=== PATIENT | male | born 1955 | race Caucasian/White ===

== ENCOUNTER 2018-03-28 11:59 | Inpatient (IN) | payer OTHER ==
[~2018-03-28] VITALS: Ht 180.3 cm; Wt 50.8 kg
[2018-03-28 12:36] LABS: ABSOLUTE BASOPHIL COUNT 0 /CUMM (0.0-0.2); ABSOLUTE EOSINOPHIL COUNT 0 /CUMM (0.0-0.7); ABSOLUTE GRANULOCYTE CT 7.3 /CUMM (1.4-6.5); ABSOLUTE LYMPH COUNT 0.6 /CUMM (1.2-3.4); ABSOLUTE MONOCYTE COUNT 1.2 /CUMM (0.10-0.60); BASOPHIL % 0.1 % (0.0-2.0); EOSINOPHIL % 0 % (0-5); GRANULOCYTE % 79.9 % (42.2-75.2); MEAN CORPUSCULAR HGB 28.9 PG (27.0-31.0); MEAN CORPUSCULAR HGB CONC 31.9 G/DL (33.0-37.0); MEAN CORPUSCULAR VOLUME 90.5 FL (80.0-94.0); MEAN PLATELET VOLUME 7.9 FL (7.4-10.4); PLATELET COUNT 184 /CUMM (130-400); RBC DISTRIBUTION WIDTH 15.1 % (11.5-14.5); RED BLOOD CELL CT 4.64 /CUMM (4.70-6.10); WHITE BLOOD CELL COUNT 9.1 /CUMM (4.8-10.8)
--- NOTE | 2018-03-28 13:18 | ED DYSPNEA/ASTHMA COMPLAINT ---
History of Present Illness General Chief Complaint: Dyspnea (COPD, CHF, Other) Stated Complaint: SOB Source: patient, , Thais Exam Limitations: no limitations Allergies Coded Allergies: No Known Allergies (03/28/18) Triage Note: 62M BROUGHT IMMEDIATELY TO ROOM 7 DUE TO SOB, O2 SAT 72% ON BASELINE 2LNC. LUNG SOUNDS DIMINISHED. REPORTS CLEAR SPUTUM PROD COUGH NORMAL AT BASELINE. MUCOUS MEMBRANES DRY. APPEARS CACHECTIC, PALE, ALERT AND ORIENTED. REPORTS RECENT POOR PO INTAKE. PREVIOUS SMOKER 2PPD 45 YEAR HX. O2 TITRATED UP WITH SLOW IMPROVEMENT, CURRENTLY 92% ON 5LNC. REPORTS NASAL POLYP AND HAS APPT WITH ENT NEXT WEEK. HX AAA, HAS PULSATILE ABDOMINAL MASS WITH BOUNDING AORTIC PULSE WITHOUT BRUIT. REPORTS MILD GNAWING PAIN. DENIES N/V/D Triage Nurses Notes Reviewed? yes Onset: yesterday Duration: continues in ED Severity: severe Activities at Onset: activity, rest Prior Episodes/Possible Cause: chronic episodes, illness exposure, smoke exposure Associated Symptoms: loss of appetite, weakness HPI: 62-year-old male presents to the emergency department with shortness of breath. He has a history of COPD to which he uses inhalers daily. He reports that as of yesterday he had eaten a grilled cheese sandwich and not too long after that he began having some shortness of breath. He also reports that he was having worsening shortness of breath last night to which his states he was taking shallow quick breaths. He has never been to the emergency department before for COPD exacerbations. His vice chair is Dr. Lynn his master mechanic is Dr. Faye. He denies any chest pain. His also reports that he was rather weak last night into this morning. Otherwise his speech is normal per his . Patient does state he is on oxygen 2 L at baseline at home. It is uncertain whether he continues to smoke - the patient reports he does not smoke however his reports that every now and then she believes he does. Of note, he also does report that he was having some difficulty breathing through his nose in the past couple of weeks. He was seen by his primary care and was told that he has nasal polyps. He has a follow-up with ENT office this upcoming Friday. He has a history of abdominal aortic aneurysm and is seeing Dr. Faye as a master mechanic. He was told the last time it was checked that it was about 5 cm and would be continued to be monitored. (Roxi Mercer) Vital Signs & Intake/Output Vital Signs & Intake/Output Vital Signs Date Time Temp Pulse Resp B/P B/P Pulse O2 O2 Flow FiO2 Mean Ox Delivery Rate 03/28 1841 95 Nasal 2.0L Cannula 03/28 1821 98.3 106 18 90/60 95 Nasal 2.0L Cannula 03/28 1703 95 24 114/69 93 Nasal 2.0L Cannula 03/28 1645 92 Nasal 2.0L Cannula 03/28 1630 88 98 / 1557 82 24 83/62 100 BIPAP 03/28 1401 116 105/74 05/ 1330 96 BIPAP 35% 03/28 1310 116 22 105/74 96 BIPAP 35% 03/28 1255 97 122 05/ 1215 70 Nasal 2.0L Cannula 03/28 1213 131 24 91 Nasal 5.0L Cannula 03/28 1200 98.4 133 28 116/69 72 Room Air Reconcile Medications Albuterol Sulfate (Proair Hfa) 90 MCG HFA.AER.AD 2 PUF INH Q4-6 PRN PRN COPD (Reported) Atorvastatin Calcium (Lipitor) 10 MG TABLET 1 TAB PO DAILY HLP (Reported) Fluticasone/Vilanterol (Breo Ellipta 200-25 Mcg INH) 200 MCG-25 MCG/DOSE BLST.W.DEV 1 INH INH DAILY COPD (Reported) Paroxetine HCl 40 MG TABLET 1 TAB PO DAILY DEPRESSION (Reported) Tiotropium [place] (Spiriva) 18 MCG CAP.W.DEV 1 CAP INH DAILY COPD (Reported) Trazodone HCl 50 MG TABLET 1 TAB PO QPM INSOMINA (Reported) (Siddharth Pandey MD) Past History Travel History Traveled to [place] past 21 day No Medical History Any Pertinent Medical History? see below for history Neurological: NONE EENT: NONE Cardiovascular: aortic aneurysm (abdominal) Respiratory: COPD Gastrointestinal: NONE Hepatic: NONE Renal: NONE Musculoskeletal: NONE Psychiatric: history of alcohol abuse, has been sober for many years (>10) Endocrine: NONE Psychosocial History What is your primary language Romansh Tobacco Use: Quit >30 days ago Daily Tobacco Use Amount/Type: => 5 Cigarettes daily Family History Hx Contributory? No (Roxi Mercer) Surgical History Surgical History: non-contributory (Dannie BISHOP,Siddharth) Review of Systems Review of Systems Constitutional: Reports: see HPI. EENTM: Reports: no symptoms. Respiratory: Reports: see HPI. Cardiovascular: Reports: no symptoms. GI: Reports: no symptoms. Genitourinary: Reports: no symptoms. Musculoskeletal: Reports: no symptoms. Skin: Reports: no symptoms. Neurological/Psychological: Reports: no symptoms. Hematologic/Endocrine: Reports: no symptoms. Immunologic/Allergic: Reports: no symptoms. All Other Systems: Reviewed and Negative (Roxi Mercer) Physical Exam Physical Exam General Appearance: well developed/nourished, no apparent distress, alert, awake , comfortable, cachetic Head: atraumatic, normal appearance Eyes: Bilateral: normal appearance, PERRL, EOMI. Ears, Nose, Throat: pharynx with blackened appearance, per patient was likely from ensure drink, dry mucous membranes Neck: normal inspection, full range of motion Respiratory: chest non-tender, decreased breath sounds, crackles (lower lung pinon) Cardiovascular: tachycardia Gastrointestinal: soft, non-tender, pulsatile mass (abd aortic aneurysm), abnormal bowel sounds (hyperactive) Extremities: normal inspection, normal range of motion, no edema Neurologic/Psych: no motor/sensory deficits, awake, alert, oriented x 3, normal mood/affect Skin: intact, normal color Core Measures ACS in differential dx? Yes CVA/TIA Diagnosis No Sepsis Present: No Sepsis Focused Exam Completed? No (Roxi Mercer) Progress Differential Diagnosis: CHF, COPD, pneumonia, acute copd exacerbation Diagnostic Imaging: Viewed by Me: Radiology Read. Discussed w/RAD: Radiology Read. Radiology Impression: PATIENT: EDD CAMPOS PRESENT AGE: 62 PATIENT ACCOUNT NO: [id number] : 55 LOCATION: [facility] ORDERING PHYSICIAN: Siddharth Pandey MD SERVICE DATE: 03/28/18 EXAM TYPE: RAD - XRY- PORTABLE CHEST XRAY EXAMINATION: XR PORTABLE CHEST CLINICAL INFORMATION: COPD, shortness of breath COMPARISON: CT chest 12/04/2017, chest radiographs 2015 TECHNIQUE: Portable upright AP view of the chest was obtained. FINDINGS: There is hyperinflation/COPD. Some minor scarring is present periphery right upper zone similar to prior study. There is no interval airspace consolidation or definite effusion. No pneumothorax. The heart is normal in size. Hilar and mediastinal contours and visualized bony structures are stable. IMPRESSION: Hyperinflation/COPD. No acute intrathoracic disease. DICTATED BY: Kelton Arreaga MD DATE/TIME DICTATED:03/28/181323 AREA DIRECTOR:YONATHAN DATE/TIME TRANSCRIBED:03/28/181323 CONFIDENTIAL, DO NOT COPY WITHOUT APPROPRIATE AUTHORIZATION. <Electronically signed in Other Vendor System> SIGNED BY: Kelton Arreaga MD 03/28/18 1331 Initial ED EKG: tachycardia with rate-related ischemia Comments: 03/28/18 1:35pm Patient's carbon monoxide level was elevated, and he was placed on BiPAP with DuoNeb. His troponin level was elevated at 0.34. His BNP is also elevated at 2810. Patient is to be admitted and will likely be placed in the ICU. 03/28/18 1:55pm Patient was given Lopressor IV 5 mg for rate control. He was also started on baby aspirin. He was also started on Solu-Medrol. Hospitalist was consulted by . 03/28/18 2:45pm Patient doing well on BiPAP machine. When asked how his breathing is he gives a thumbs up. 03/28/18 4:30pm Patient's blood pressure was dropping, was given bolus IV. Heart rate normalizing around the 80-90s. Patient was resting, but easily arousable. Patient was admitted to the floor. Discussed case and plan with Dr. Pandey who discussed with admitting attending. ([facility] [place] Plan of Care: Orders Procedure Date/time Status Nothing by Mouth 03/29 B Active ARTERIAL BLOOD GAS (GEN) 03/29 0500 Active ICU LAB BUNDLE 03/29 0500 Active CBC WITHOUT DIFFERENTIAL 03/29 0500 Active TROPONIN LEVEL 03/29 0000 Active EKG 03/29 0000 Active Regular Diet 03/28 D Complete RT: Evaluation 03/28 1828 Active Wound Care/Dressing 03/28 1821 Active Weight 03/28 182 Active VTE Mechanical Prophylaxis 03/28 182 Active Vital Signs 03/28 1821 Active Turn and Reposition 03/28 1821 Active Drains/Tubes 03/28 1821 Complete Teach/Educate 03/28 1821 Active Skin Integrity Protocol 03/28 1821 Active Skin/Pressure Ulcer Assess (Sk 05/05 1821 Active Precautions 03/28 1821 Active Pain Treatment and Response 03/28 182 Active Nutritional Intake, Monitor 03/28 182 Active Isolation 03/28 1821 Active CIWA 03/28 1821 Active Patient Care Conference 03/28 1821 Active Activity/Ambulation 03/28 1821 Active TROPONIN LEVEL 03/28 1800 Active EKG 03/28 1800 Active VRE ACTIVE SURVIELLANCE 03/28 1743 Active ACTIVE SURVEILLANCE NARES 03/28 1743 Active ARTERIAL BLOOD GAS (GEN) 03/28 1730 Active Arredondo, Insertion/Removal/Asses 03/28 1708 Active CULTURE,URINE 03/28 1708 Active ECHOCARDIOGRAM 03/28 1632 Active Pathway - chart 03/28 1627 Active TRC EVALUATION (GEN) 03/28 1625 Active Pathway - chart 03/28 1625 Active House Staff 03/28 1625 Active Patient Data 03/28 1625 Active Code Status 03/28 1625 Active Patient Data 03/28 1517 Active Admit to inpatient 03/28 1349 Active AEROSOL (GEN) 03/28 1330 Complete BIPAP 03/28 1255 Complete ARTERIAL BLOOD GAS (GEN) 03/28 1216 Complete TROPONIN LEVEL 03/28 1216 Complete MAGNESIUM 03/28 1216 Complete COMPREHENSIVE METABOLIC PANEL 03/28 1216 Complete CBC WITHOUT DIFFERENTIAL 03/28 1216 Complete B-TYPE NATRIURETIC PEP (BNP) 03/28 1216 Complete EKG 03/28 1207 Active BIPAP 03/28 UNK Complete VTE Mechanical Prophylaxis 03/28 UNK Active Vital Signs 03/28 UNK Active Intake & Output 03/28 UNK Active Current Medications Sig/Alejandrina Start time Last Medication Dose Stop Time Status Admin Aspirin 81 MG DAILY 03/29 09 AC (Aspirin) Enoxaparin Sodium 40 MG DAILY 03/29 09 AC (Lovenox) Tiotropium [place] 1 PUF DAILY 03/29 09 AC (Spiriva) Methylprednisolone 40 MG Q8 03/28 2200 AC (Solumedrol) Budesonide/ 2 PUF BID 03/28 2100 AC Formoterol Fumarate (Symbicort) Trazodone HCl 50 MG QPM PRN 03/28 1900 UNVr (Desyrel) Paroxetine HCl 40 MG DAILY 03/28 1856 UNVr (Paxil) Atorvastatin Calcium 40 MG 1700 03/28 1700 AC 03/28 (Lipitor) 1850 Azithromycin 500 MG DAILY 03/28 1633 AC 03/28 (Zithromax) 1731 Sodium Chloride 250 ML (Normal Saline 0.9%) Laboratory Tests 03/28/18 1810: Troponin I Pending 03/28/18 1740: pH 7.35, pCO2 62 *H, pO2 83, HCO3 34 H, ABG O2 Sat (Measured) 94.0 L, P-50 ( Temp Corrected) N, Carboxyhemoglobin 1.0 L, O2 Concentration % 30%, Temperature 98.4, Respiration Rate 24, O2 Delivery Method BIPAP, Vent Mode ST, Expiratory Pressure 6, Inspiratory Pressure 22, Phlebotomy Draw Site RIGHT RADIAL 03/28/18 1430: pH 7.29 *L, pCO2 94 *H, pO2 80, HCO3 44 H, ABG O2 Sat (Measured) 93.0 L, Carboxyhemoglobin 1.4 L, O2 Concentration % 35, Respiration Rate 18, O2 Delivery Method BIPAP, Vent Mode ST, Expiratory Pressure 4, Inspiratory Pressure 15, Phlebotomy Draw Site RIGHT RADIAL 03/28/18 1235: pH 7.28 *L, pCO2 93 *H, pO2 66 L, HCO3 43 H, ABG O2 Sat (Measured) 88.0 L, Carboxyhemoglobin 2.0, O2 Concentration % 5L, O2 Delivery Method N/C, Phlebotomy Draw Site RIGHT RADIAL 03/28/18 1220: Anion Gap 13, Estimated GFR > 60, BUN/Creatinine Ratio 38.6 H, Glucose 192 H, Calcium 9.3, Magnesium 1.9, Total Bilirubin 0.5, AST 37, ALT 29, Alkaline Phosphatase 64, Troponin I 0.34 *H, Owx-V-Njefmuuyccz Pept 2810 H, Total Protein 7.1, Albumin 4.5, Globulin 2.6, Albumin/Globulin Ratio 1.7, CBC w Diff NO MAN DIFF REQ, RBC 4.64 L, MCV 90.5, MCH 28.9, MCHC 31.9 L, RDW 15.1 H, MPV 7.9, Gran % 79.9 H, Lymphocytes % 6.5 L, Monocytes % 13.5 H, Eosinophils % 0, Basophils % 0.1, Absolute Granulocytes 7.3 H, Absolute Lymphocytes 0.6 L, Absolute Monocytes 1.2 H, Absolute Eosinophils 0, Absolute Basophils 0 Microbiology 03/28 1743 UPPER RESP: Surveillance Culture - COLB 03/28 1743 GI: Surveillance Culture - COLB 03/28 1719 URINE ROUT: Urine Culture - RECD (Siddharth Pandey MD) Departure Departure Condition: Stable Referrals: Shlomo Hernandez MD (PCP/Family) Departure Forms: Customer Survey General Discharge Information Admission Note Documentation of Exam: Documentation of any treatments & extenuating circumstances including Concerns Regarding Discharge (functional status, medication knowledge or non-compliance, living conditions, etc.) that warrant an admission rather than observation: [ COPD exacerbation on BiPAP machine & DuoNeb d/t elevated carbon dioxine in ABG, lopressor iv for tachycardia - EKG minor rate-related ischemia, troponin elevated at 0.34, [id number]; vice chair Dr. Lynn, master mechanic Dr. Faye] (Roxi Mercer) Departure Disposition: STILL A PATIENT Clinical Impression Primary Impression: Acute hypercapnic respiratory failure Secondary Impressions: COPD with exacerbation, Elevated troponin Admission Note Spoke With: Andra Sheikh MD Documentation of Exam: Documentation of any treatments & extenuating circumstances including Concerns Regarding Discharge (functional status, medication knowledge or non-compliance, living conditions, etc.) that warrant an admission rather than observation: PA/VALVE LINER RUBBER Co-Sign Statement Statement: ED Attending supervision documentation- x I saw and evaluated the patient. I have also reviewed all the pertinent lab results and diagnostic results. I agree with the findings and the plan of care as documented in the PA's/VALVE LINER RUBBER's documentation. Severe respiratory distress with disorientation and weakness. Respiratory acidosis with hypercarbia, +troponin, tachycardia to ICU on BiPAP. No heparin per cards. [] I have reviewed the ED Record and agree with the PA's/VALVE LINER RUBBER's documentation. [] Additions or exceptions (if any) to the PAs/VALVE LINER RUBBER's note and plan are summarized below: [] (Siddharth Pandey MD) Critical Care Note Critical Care Note Critical Care Time: 30-74 min (60) (Siddharth Pandey MD)
--- NOTE | 2018-03-28 13:31 | RADIOLOGY REPORT ---
EXAMINATION: XR PORTABLE CHEST CLINICAL INFORMATION: COPD, shortness of breath COMPARISON: CT chest 12/04/2017, chest radiographs 10/14/2016 TECHNIQUE: Portable upright AP view of the chest was obtained. FINDINGS: There is hyperinflation/COPD. Some minor scarring is present periphery right upper zone similar to prior study. There is no interval airspace consolidation or definite effusion. No pneumothorax. The heart is normal in size. Hilar and mediastinal contours and visualized bony structures are stable. IMPRESSION: Hyperinflation/COPD. No acute intrathoracic disease.
--- NOTE | 2018-03-28 16:05 | History & Physical ---
Nicanor Shay 03/28/18 1605: General Information and HPI MD Statement: I have seen and personally examined EDD CAMPOS and documented this H&P. The patient is a 62 year old M who presented with a patient stated chief complaint of worsening shortness of breath since morning. Source of Information: patient, old records Exam Limitations: clinical condition History of Present Illness: This is a 62-year-old man with past medical history significant for end-stage COPD, on home oxygen, on inhaler treatments, follows up with Dr. Lynn, anxiety, depression, hyperlipidemia, insomnia, ascending aortic aneurysm, chronic respiratory failure was brought in by ambulance for evaluation of worsening shortness of breath for 1 day. Patient reports that he has been having shortness of breath for last 2 days, acutely worsened this morning which prompted him to come to the emergency room for further evaluation. According to the patient, medical records - patient has shortness of breath for a couple of days. Also reports cough and white colored sputum production for 1 day. Denies any fever, chills. He denies any recent travel history, sick contact exposure. According to the he was very weak and little confused this morning. Patient has extensive history of smoking 2 packs per day for 45 years. He has been getting outpatient CAT scan chest every year for screening. He has severe emphysema, nodular opacities of both lower lungs. He has been following up Dr. Lynn biological lab technician as an outpatient for end-stage COPD. He uses oxygen continuously 2 L. He was never admitted to the hospital for COPD exacerbation. He was never intubated. On review of systems he denies any chest pain, palpitations, hemoptysis, nausea, vomiting, abdominal pain, change in bladder or bowel habits, focal neurologic deficits, sensory changes, gait abnormalities, vision changes. Denied current smoking, alcohol abuse, illicit drug abuse CAT scan chest 12/2016 showed Borderline ascending aortic aneurysm with maximal AP diameter of 4.0 cm. Follows up with PCP, patrol mother Dr. Faye, biological lab technician Dr. Quinones as an outpatient Allergies/Medications Allergies: Coded Allergies: No Known Allergies (03/28/18) Compliance With Home Meds: GOOD Past History Travel History Traveled to [place] past 21 day No Medical History Neurological: NONE EENT: NONE Cardiovascular: aortic aneurysm (abdominal) Respiratory: COPD Gastrointestinal: NONE Hepatic: NONE Renal: NONE Musculoskeletal: NONE Psychiatric: history of alcohol abuse, has been sober for many years (>10) Endocrine: NONE Surgical History Surgical History: unobtainable Past Family/Social History Family History Relations & Conditions if any Relation not specified for: *No pertinent family history Psychosocial History Smoking Status: Former Smoker ETOH Use: denies use Illicit Drug Use: denies illicit drug use Review of Systems Review of Systems Constitutional: Reports: weakness. Denies: see HPI, chills, diaphoresis, fever, malaise, unexplained weight loss. EENTM: Denies: blurred vision, double vision. Cardiovascular: Denies: chest pain, edema, orthopena, palpitations, peripheral edema, syncope. Respiratory: Reports: cough, short of breath, sputum production, wheezing. Denies: hemoptysis, orthopnea, stridor. GI: Denies: abdominal pain, bloating, constipation, diarrhea, distention. Genitourinary: Denies: discharge, dysuria, frequency. Musculoskeletal: Denies: back pain, gout, joint pain. Skin: Denies: dryness, erythema, jaundice. Neurological/Psychological: Denies: confusion, depressed, dementia. Exam & Diagnostic Data Last 24 Hrs of Vital Signs/I&O Vital Signs Date Time Temp Pulse Resp B/P B/P Pulse O2 O2 Flow FiO2 Mean Ox Delivery Rate 03/28 1703 95 24 114/69 93 Nasal 2.0L Cannula 03/28 1645 92 Nasal 2.0L Cannula 03/28 1630 88 98 05/ 1557 82 24 83/62 100 BIPAP 05/ 1401 116 105/74 05/05 1330 96 BIPAP 35% 05/ 1310 116 22 105/74 96 BIPAP 35% 05/05 1255 97 122 05/ 1215 70 Nasal 2.0L Cannula 03/28 1213 131 24 91 Nasal 5.0L Cannula 03/28 1200 98.4 133 28 116/69 72 Room Air Intake & Output 03/28 1600 03/28 0800 03/28 0000 Intake Total 0 Output Total Balance 0 Intake, Oral 0 Patient 49.895 kg Weight Weight Reported by Patient Measurement Method Physical Exam General Appearance Alert, Oriented X3, Cooperative, No Acute Distress Skin No Rashes, No Breakdown, No Significant Lesion Skin Temp/Moisture Exam: Warm/Dry Sepsis Skin Exam (color): Normal for Ethnicity HEENT Atraumatic, PERRLA, EOMI, Mucous Membr. moist/pink Neck Supple, No JVD Lymphatic Cervical nl Cardiovascular Regular Rate, Normal S1, Normal S2, No Murmurs Lungs Normal Air Movement, decreased breath sounds and b/l wheezes and crackles Abdomen Normal Bowel Sounds, Soft, No Tenderness Extremities No Clubbing, No Cyanosis, No Edema, Normal Pulses, No Tenderness/ Swelling Vascular Normal Pulses, Pulses Symmetrical Sepsis Peripheral Pulse Location: Radial Sepsis Peripheral Pulse Exam: Normal Sepsis Cap Refill Exam: <2 Sec Last 24 Hrs of Labs/José Antonio: Laboratory Tests 03/28/18 1430: pH 7.29 *L, pCO2 94 *H, pO2 80, HCO3 44 H, ABG O2 Sat (Measured) 93.0 L, Carboxyhemoglobin 1.4 L, O2 Concentration % 35, Respiration Rate 18, O2 Delivery Method BIPAP, Vent Mode ST, Expiratory Pressure 4, Inspiratory Pressure 15, Phlebotomy Draw Site RIGHT RADIAL 03/28/18 1235: pH 7.28 *L, pCO2 93 *H, pO2 66 L, HCO3 43 H, ABG O2 Sat (Measured) 88.0 L, Carboxyhemoglobin 2.0, O2 Concentration % 5L, O2 Delivery Method N/C, Phlebotomy Draw Site RIGHT RADIAL 03/28/18 1220: Anion Gap 13, Estimated GFR > 60, BUN/Creatinine Ratio 38.6 H, Glucose 192 H, Calcium 9.3, Magnesium 1.9, Total Bilirubin 0.5, AST 37, ALT 29, Alkaline Phosphatase 64, Troponin I 0.34 *H, Pgi-P-Veyvxmccjkw Pept 2810 H, Total Protein 7.1, Albumin 4.5, Globulin 2.6, Albumin/Globulin Ratio 1.7, CBC w Diff NO MAN DIFF REQ, RBC 4.64 L, MCV 90.5, MCH 28.9, MCHC 31.9 L, RDW 15.1 H, MPV 7.9, Gran % 79.9 H, Lymphocytes % 6.5 L, Monocytes % 13.5 H, Eosinophils % 0, Basophils % 0.1, Absolute Granulocytes 7.3 H, Absolute Lymphocytes 0.6 L, Absolute Monocytes 1.2 H, Absolute Eosinophils 0, Absolute Basophils 0 Microbiology 03/28 1743 UPPER RESP: Surveillance Culture - ORD 03/28 174 GI: Surveillance Culture - ORD 03/28 1719 URINE ROUT: Urine Culture - RECD Assessment/Plan Assessment: This is a 62-year-old man with past medical history significant for end-stage COPD, on home oxygen, on inhaler treatments, follows up with Dr. Lynn, anxiety, depression, hyperlipidemia, insomnia, ascending aortic aneurysm, chronic respiratory failure was brought in by ambulance for evaluation of worsening shortness of breath for 1 day. Vitals at the time of admission Afebrile, heart rate 133, respiratory rate 28, blood pressure 116/69, saturating at 72 on 2 L nasal cannula. pertinent labs WBC 9.1, hemoglobin 13 and hematocrit 42, platelets 184 Sodium 136, potassium 5.2, BUN 27, creatinine 0.7, platelets 192 Troponin 0.34 ProBNP 2810 Chest x-ray showed Hyperinflation/COPD. No acute intrathoracic disease. EKG showed sinus rhythm, sinus tachycardia, rate 130, normal OR interval, right bundle branch block, no acute ST-T wave changes. V3 showed 0.[address] elevations CTA 1. No evidence of pulmonary embolism. 2. Extensive paraseptal and centrilobular emphysema is again seen with multifocal areas of reticular nodular opacities in the lungs, similar to prior study. There are 2 nodules, however which are changing, one being new in the right upper lobe and the other being an enlarging nodule by 2 mm in the right upper lobe compared to 12/04/2017. Given the relatively rapid time course of change, inflammatory etiology may be possible. However, given the extensive underlying obstructive lung disease, neoplastic etiology is not excluded and short interval follow-up assessment in 3 months is recommended. 3. Enlarged central pulmonary arteries, suspicious for pulmonary arterial hypertension. 4. Aneurysmal aorta, similar to prior exam. 5. Mild coronary artery calcifications. -------- 1. Acute hypoxic and hypercarbic respiratory failure possibly from COPD exacerbation Patient presented with worsening shortness of breath for 1 day, associated with cough and sputum production. He was hypoxic up to 70% on 2 L nasal cannula requiring BiPAP. Initial ABG 7.29, 94, 44, PO2 66. He was placed on BiPAP with settings 15, 4, E 18. ABG after couple of hours showed no improvement 7.28, 93, 43, 80. BiPAP settings were changed to 22, 5, 18. Repeat ABGs showed good improvement 7.35, 62, 34, 94. * Patient was admitted to ICU for BiPAP requirement for the first time * Possible differentials for acute hypoxia and hypercarbic respiratory failure most possibly COPD exacerbation, end-stage COPD, bronchitis given his cough and sputum production. Of note patient has end-stage COPD, oxygen dependent. Never intubated. * Continue BiPAP for now-22, 5, 18 * BiPAP tonight * Repeat ABG in a.m. * Monitor vitals every shift * IV methylprednisolone 40 every 8 hours * IV azithromycin for 5 days * TRC nebs * Sputum culture * Monitor for fevers/leukocytosis * Discussed with Dr morrison about the plan. will see the patient tomorrow * Discussed with Dr culp Elevated troponin-type II MT Patient was found to have elevated troponin 0.34 at the time of admission. He denied any chest pain, diaphoresis, sweating, palpitations. However he has shortness of breath from COPD exacerbation. Elevated troponin most likely from demand ischemia. EKG showed sinus rhythm, sinus tachycardia, rate 130, PVC, right bundle branch block. V3 showed 0.[address] elevations. * Elevated troponin most likely demand ischemia from acute hypoxic respiratory failure and COPD exacerbation * Serial troponins and EKG * Continue aspirin 81 daily * Continue Lipitor 40 daily * Follow-up echocardiogram * Discussed the plan with Dr. Elise patrol mother * Follow cardiology recommendations Sinus tachycardia Patient presented with tachycardia ranging in between 120-140. EKG showed sinus tachycardia rate 133. He received IV Lopressor 5 mg in the emergency room with follow-up heart rates varying in between 80-100. * Given sinus tachycardia, hypoxia, shortness of breath CT angiogram was done, ruled out pulmonary embolism. * Continuous telemetry monitoring * Monitor heart rates closely Hypotension Patient was given 1 dose of IV Lopressor 5 mg in the emergency room after which blood pressure dropped down to 80. He was given 1 L of IV fluids after which her blood pressure improved up to 110. * Gentle hydration vs aggressive hydration based on blood pressure. Severe COPD/ oxygen dependent Patient has extensive history of smoking 2 packs per day for 45 years. He has been getting outpatient CAT scan chest every year for screening. He has severe emphysema, nodular opacities of both lower lungs. He has been following up Dr. Lynn biological lab technician as an outpatient for end-stage COPD. He uses oxygen continuously 2 L. He was never admitted to the hospital for COPD exacerbation. He was never intubated. * TRC nebs lUNG NODULES There are 2 nodules, however which are changing, one being new in the right upper lobe and the other being an enlarging nodule by 2 mm in the right upper lobe compared to 12/04/2017. However, given the extensive underlying obstructive lung disease, neoplastic etiology is not excluded and short interval follow-up assessment in 3 months is recommended. * Follow up CAT scan in 3 months Aneurysmal aorta CAT scan chest 12/2016 showed Borderline ascending aortic aneurysm with maximal AP diameter of 4.0 cm. CTA 03/28/2018 showed The ascending aorta is ectatic, measuring 3.7 cm at the level of the right main pulmonary artery. The descending limb of the aortic arch measures 4.1 cm and the descending aorta 2.8 cm. * No further intervention for now given aneurysmal aorta similar to prior exam. Measures less than 5.5 cm Hyperlipidemia-continue home medications Lipitor 40 daily Insomnia continue trazodone 50 at bedtime Depression continue paroxetine 40 at bedtime Patient is full code DVT prophylaxis alps and subcutaneous Lovenox Nothing by mouth for now given on BiPAP Pain pathway #1 Central line- none #2 Arterial line- none #3 Arredondo catheter- none #4 Rectal tube- none. #5 NG tube- none. #6 IV/peripheral line- present 03/28/18 #7 IV drips- NS #8 Vent settings - BIPAP #9 pressors- none. As Ranked By This Provider Problem List: 1. Elevated troponin 2. COPD with exacerbation 3. Acute hypercapnic respiratory failure Core Measures/Misc (08/10) Acute Coronary Syndrome ACS Diagnosis: No Congestive Heart Failure Congestive Heart Failure Diagnosis No Cerebrovascular Accident CVA/TIA Diagnosis: No VTE (View Protocol) VTE Risk Factors No risk factors No Mechanical VTE Prophylaxis d/t N/A MechProphylax Ordered No VTE Pharm Prophylaxis d/t NA PharmProphylax ordered Sepsis (View protocol) Sepsis Present: No Aguilar BISHOP,Andra 03/28/18 1624: General Information and HPI Allergies/Medications Home Med list Albuterol Sulfate (Proair Hfa) 90 MCG HFA.AER.AD 2 PUF INH Q4-6 PRN PRN COPD (Reported) Atorvastatin Calcium (Lipitor) 10 MG TABLET 1 TAB PO DAILY HLP (Reported) Fluticasone/Vilanterol (Breo Ellipta 200-25 Mcg INH) 200 MCG-25 MCG/DOSE BLST.W.DEV 1 INH INH DAILY COPD (Reported) Paroxetine HCl 40 MG TABLET 1 TAB PO DAILY DEPRESSION (Reported) Tiotropium [place] (Spiriva) 18 MCG CAP.W.DEV 1 CAP INH DAILY COPD (Reported) Trazodone HCl 50 MG TABLET 1 TAB PO QPM INSOMINA (Reported) Attending MD Review Statement Attending Statement Attending MD Statement: examined this patient, discuss w/resident/PA/HUMAN RESOURCES OFFICER, agreed w/resident/PA/HUMAN RESOURCES OFFICER, reviewed EMR data (avail), discussed with nursing, reviewed images Attending Assessment/Plan: 62-year-old male past medical history of end-stage COPD (90 pack year tobacco history), chronic respiratory failure on 2 L of oxygen at baseline. He is here with acute hypoxemic and hypercapnic respiratory failure with acute respiratory acidosis. The etiology of the sudden flare is unclear. His chest x-ray is unrevealing for pneumonia however he does have tachycardia and an elevated troponin. In addition to his chronic respiratory failure and severe COPD with centrilobular emphysema he also has borderline thoracic aortic aneurysmal dilatation, the last CT in 2017 shows the aneurysmal dilatation and he believes that he has a 5 cm abdominal aneurysm. He follows with Dr. Faye his patrol mother and Dr. Lynn his biological lab technician. At this point given the severity of the hypoxemia, hypercapnia and acidosis and given the fact that his ABG 2 hours apart barely changed in terms of his PCO2, will bring him into the ICU. I've spoken to Dr. Morrison the manager skilled on -call extensively over the phone. We are going to give him IV steroids for a presumed COPD exacerbation, he has directed the resident in terms of their BiPAP settings and we are going to repeat the ABG at in an hour or 2. We are also giving him Azithro for the possibility of a bacterial bronchitis and continuing his Spiriva, inhaled LABA/steroid combination and TRC with nebs. Given the tachycardia and the troponin elevation we are going to get a CTA to make sure he doesn't have a PE. This should also help define this aneurysmal dilatation of the ascending thoracic aorta. Also get a formal cardiology consult. I've spoken to the patient and the patient's at length. He is a full code , despite his extensive lung disease he's stayed out of the hospital and hasn't had frequent exacerbations. They understand the critical nature of his illness and the guarded prognosis. Total time spent at bedside and coordinating care was 38 minutes
--- NOTE | 2018-03-28 16:16 | Admission Certification ---
Admission Certification Certification Statement - As attending physician, I certify that at the time of - admission, based on clinical presentation, severity of - symptoms, need for further diagnostic testing and - therapeutic interventions, and risk of adverse outcomes - without in-hospital treatment, in my clinical assessment, - this patient requires an acute hospital stay for a minimum - of two nights or longer. I have also considered psychsocial - factors such as support system, advanced age, financial - issues, cognitive issues, and failed out-patient treatments, - past re-admission history, safety of patient, and lack of - compliance as applicable. Specific rationale supporting this admission is: ACUTE HYPOXEMIC AND HYPERCAPNIC RESP FAILURE
[2018-03-28] MEDS ORDERED: PROAIR HFA8.5 GM INH (16:35)
[2018-03-28] MEDS ORDERED: BREO ELLIPTA 21 EACH INH (16:36)
[2018-03-28] MEDS ORDERED: SPIRIVA18 MCG INH (16:39)
[2018-03-28] MEDS ORDERED: LIPITOR10 M1 PO (16:40)
[2018-03-28] MEDS ORDERED: PAROXETINE HCL40 M1 PO (16:40)
[2018-03-28] MEDS ORDERED: TRAZODONE HCL50 M1 PO (16:40)
--- NOTE | 2018-03-28 17:43 | CT SCAN REPORT ---
EXAMINATION: CT CHEST PE STUDY CLINICAL INFORMATION: Shortness of breath. Hypoxia and tachycardia. Presumptive diagnosis of pulmonary embolism. COMPARISON: CT scan of the chest dated 12/04/2017, 06/26/2017, and 12/26/2016. TECHNIQUE: Prior to contrast administration, localization images were obtained. After the administration of 95 and mL of intravenous Optiray 320, multidetector CT volume acquisition of the chest was performed. 3-D postprocessing was performed with multiplanar reconstructions and MIP images obtained at the acquisition workstation under concurrent physician supervision. DLP: 211.93 mGy-cm. FINDINGS: Pulmonary arteries: The bolus timing on this study was acceptable for visualization of the pulmonary arterial tree. There are no intraluminal pulmonary arterial filling defects present to suggest pulmonary embolism in the main pulmonary artery, right and left main pulmonary artery, lobar and segmental branches. Central pulmonary arteries are enlarged, measuring 3.7 cm on the right side and 3.0 cm on the left side, raising the suspicion of pulmonary arterial hypertension. Lungs: There is extensive centrilobular and paraseptal emphysema again seen throughout the lungs. Superimposed multifocal areas of reticular nodular opacities are seen, similar to the previous exam, consistent with areas of chronic atelectasis or scarring. Patchy areas of air trapping are also seen. The central airways are patent, diffusely thickened and mildly ectatic. There is an enlarging solid noncalcified pulmonary nodule in the right lung apex (series 2, image 109), measuring 6 mm in diameter as compared to 4 mm on 12/04/2017. There is a new 6 mm solid noncalcified pulmonary nodule anteromedially in the right upper lobe (series 2, image 254). Aorta and heart: The heart is normal in size. The ascending aorta is ectatic, measuring 3.7 cm at the level of the right main pulmonary artery. The descending limb of the aortic arch measures 4.1 cm and the descending aorta 2.8 cm. Mild atherosclerotic calcifications of the aorta and coronary arteries are seen. There is no pericardial effusion. Lymphatic structures: There is no lymphadenopathy. Upper abdomen: Limited evaluation of the upper abdominal viscera demonstrates no focal abnormality. Bones: Diffuse osteopenia with multilevel mild vertebral spurring. No suspicious bone findings. IMPRESSION: 1. No evidence of pulmonary embolism. 2. Extensive paraseptal and centrilobular emphysema is again seen with multifocal areas of reticular nodular opacities in the lungs, similar to prior study. There are 2 nodules, however which are changing, one being new in the right upper lobe and the other being an enlarging nodule by 2 mm in the right upper lobe compared to 12/04/2017. Given the relatively rapid time course of change, inflammatory etiology may be possible. However, given the extensive underlying obstructive lung disease, neoplastic etiology is not excluded and short interval follow-up assessment in 3 months is recommended. 3. Enlarged central pulmonary arteries, suspicious for pulmonary arterial hypertension. 4. Aneurysmal aorta, similar to prior exam. 5. Mild coronary artery calcifications.
[2018-03-28 18:21] VITALS: BP 90/60
--- NOTE | 2018-03-28 19:01 | Cons- Cardiology ---
General Information and HPI Consulting Request Date of Consult: 03/28/18 Requested By: Lorena BISHOP,[place] Gu History of Present Illness: 62 year patient with end stage COPD, O2 dependant. Presented by ambulance to ED for progressively worsening SOB X 3 days. No chest pains, syncope, palpitations, edema. PCO2 94 upon arrival with HCO3 44, patient was tachycardic (130 bpm). Significantly improved after period on BIPAP . Positive troponins without significant ischemia on EKG. Allergies/Medications Allergies: Coded Allergies: No Known Allergies (03/28/18) Home Med List: Albuterol Sulfate (Proair Hfa) 90 MCG HFA.AER.AD 2 PUF INH Q4-6 PRN PRN COPD (Reported) Atorvastatin Calcium (Lipitor) 10 MG TABLET 1 TAB PO DAILY HLP (Reported) Fluticasone/Vilanterol (Breo Ellipta 200-25 Mcg INH) 200 MCG-25 MCG/DOSE BLST.W.DEV 1 INH INH DAILY COPD (Reported) Paroxetine HCl 40 MG TABLET 1 TAB PO DAILY DEPRESSION (Reported) Tiotropium [place] (Spiriva) 18 MCG CAP.W.DEV 1 CAP INH DAILY COPD (Reported) Trazodone HCl 50 MG TABLET 1 TAB PO QPM INSOMINA (Reported) Current Medications: Current Medications Sig/Alejandrina Start time Last Medication Dose Route Stop Time Status Admin Albuterol Sulfate 3 ML Q6 PRN 03/28 1730 DC INH Albuterol Sulfate 2 PUF Q4-6 PRN PRN 03/28 1645 DC INH Albuterol Sulfate 3 ML ONCE ONE 03/28 1330 DC 05 INH 03/28 1331 1330 Aspirin 81 MG DAILY 03/29 0900 AC PO Aspirin 0 .STK-MED ONE 03/28 1400 DC PO Aspirin 325 MG ONCE ONE 03/28 1345 DC 05 PO 05 1346 1401 Atorvastatin Calcium 40 MG 1700 05 1700 AC 05 PO 1850 Azithromycin 500 MG DAILY 03/28 1633 AC 03/28 Sodium Chloride 250 ML IV 1731 Budesonide/ 2 PUF BID 03/28 2100 AC Formoterol Fumarate INH Enoxaparin Sodium 40 MG DAILY 03/29 0900 AC SC Ipratropium [place] 2.5 ML ONCE ONE 03/28 1330 DC 05 INH 03/28 1331 1330 Methylprednisolone 40 MG Q8 03/28 2200 AC IV Methylprednisolone 0 .STK-MED ONE 03/28 1337 DC .ROUTE Methylprednisolone 125 MG ONCE ONE 03/28 1330 DC 03/28 IV 03/28 1331 1334 Metoprolol Tartrate 0 .STK-MED ONE 03/28 1359 DC IV Metoprolol Tartrate 5 MG ONCE ONE 03/28 1345 DC 03/28 IV 03/28 1346 1401 Paroxetine HCl 40 MG DAILY 03/28 1856 UNVr PO Sodium Chloride 1,000 ML BOLUS ONE 03/28 1630 DC 03/28 IV 03/28 1729 1630 Tiotropium [place] 1 PUF DAILY 03/29 0900 AC INH Trazodone HCl 50 MG QPM PRN 03/28 1900 UNVr PO Review of Systems Review of Systems: see HPI. 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 Home Services at Home: Oxygen Smoking Status: Former Smoker ETOH Use: denies use Illicit Drug Use: denies illicit drug use Exam & Diagnostic Data Vital Signs and I&O Vital Signs Date Time Temp Pulse Resp B/P B/P Pulse O2 O2 Flow FiO2 Mean Ox Delivery Rate 03/28 1841 95 Nasal 2.0L Cannula 03/28 1821 98.3 106 18 90/60 95 Nasal 2.0L Cannula 03/28 1703 95 24 114/69 93 Nasal 2.0L Cannula 03/28 1645 92 Nasal 2.0L Cannula 03/28 1630 88 98 03/28 1557 82 24 83/62 100 BIPAP 03/28 1401 116 105/74 05 1330 96 BIPAP 35% 03/28 1310 116 22 105/74 96 BIPAP 35% 03/28 1255 97 122 03/28 1215 70 Nasal 2.0L Cannula 03/28 1213 131 24 91 Nasal 5.0L Cannula 03/28 1200 98.4 133 28 116/69 72 Room Air Intake & Output 03/28 0803/28 0000 03/27 0000 Intake Total 0 Output Total Balance 0 Intake, Oral 0 Patient 110 lb Weight Weight Reported by Patient Measurement Method Physical Exam: General Appearance Alert, Oriented X3, Cooperative, No Acute Distress HEENT Atraumatic, PERRLA, EOMI, Mucous Membr. moist/pink Neck Supple, No JVD, trachea midline Cardiovascular Regular Rate, Normal S1, Normal S2, No audible murmur Lungs Normal Air Movement, decreased breath sounds and diffuse wheezes Abdomen Normal Bowel Sounds, Soft, No Tenderness ExtremitiesNo Cyanosis, No Edema, good capillary refill Labs/José Antonio Results: Laboratory Tests 03/28 03/28 03/28 1810 1740 1430 Blood Gas pH (7.35 - 7.45 PH) 7.35 7.29 *L pCO2 (35 - 45 TORR) 62 *H 94 *H pO2 (80 - 100 TORR) 83 80 HCO3 (21 - 28 MEQ/L) 34 H 44 H ABG O2 Sat (Measured) (>96.0 %) 94.0 L 93.0 L P-50 (Temp Corrected) N Carboxyhemoglobin (1.5 - 5.0 %) 1.0 L 1.4 L O2 Concentration % 30% 35 Temperature (97.0 - 100.0 FARH) 98.4 Respiration Rate (BPM) 24 18 O2 Delivery Method BIPAP BIPAP Vent Mode ST ST Expiratory Pressure (CM H2O P) 6 4 Inspiratory Pressure (CM H2O P) 22 15 Chemistry Troponin I Pending Miscellaneous Phlebotomy Draw Site RIGHT RADIAL RIGHT RADIAL 03/28 03/28 1235 1220 Blood Gas pH (7.35 - 7.45 PH) 7.28 *L pCO2 (35 - 45 TORR) 93 *H pO2 (80 - 100 TORR) 66 L HCO3 (21 - 28 MEQ/L) 43 H ABG O2 Sat (Measured) (>96.0 %) 88.0 L Carboxyhemoglobin (1.5 - 5.0 %) 2.0 O2 Concentration % 5L O2 Delivery Method N/C Chemistry Sodium (137 - 145 mmol/L) 136 L Potassium (3.5 - 5.1 mmol/L) 5.2 H Chloride (98 - 107 mmol/L) 81 L Carbon Dioxide (22 - 30 mmol/L) 42 H Anion Gap (5 - 16) 13 BUN (9 - 20 mg/dL) 27 H Creatinine (0.7 - 1.2 mg/dL) 0.7 Estimated GFR (>60 ml/min) > 60 BUN/Creatinine Ratio (7 - 25 %) 38.6 H Glucose (65 - 99 mg/dL) 192 H Calcium (8.4 - 10.2 mg/dL) 9.3 Magnesium (1.6 - 2.3 mg/dL) 1.9 Total Bilirubin (0.2 - 1.3 mg/dL) 0.5 AST (17 - 59 U/L) 37 ALT (21 - 72 U/L) 29 Alkaline Phosphatase (< 127 U/L) 64 Troponin I (<0.11 ng/ml) 0.34 *H [id number]-[id number] Pept (<125 pg/mL) 2810 H Total Protein (6.3 - 8.2 g/dL) 7.1 Albumin (3.5 - 5.0 g/dL) 4.5 Globulin (1.9 - 4.2 gm/dL) 2.6 Albumin/Globulin Ratio (1.1 - 2.2 %) 1.7 Hematology CBC w Diff NO MAN DIFF REQ WBC (4.8 - 10.8 /CUMM) 9.1 RBC (4.70 - 6.10 /CUMM) 4.64 L Hgb (14.0 - 18.0 G/DL) 13.4 L Hct (42 - 52 %) 42.0 MCV (80.0 - 94.0 FL) 90.5 MCH (27.0 - 31.0 PG) 28.9 MCHC (33.0 - 37.0 G/DL) 31.9 L RDW (11.5 - 14.5 %) 15.1 H Plt Count (130 - 400 /CUMM) 184 MPV (7.4 - 10.4 FL) 7.9 Gran % (42.2 - 75.2 %) 79.9 H Lymphocytes % (20.5 - 51.1 %) 6.5 L Monocytes % (1.7 - 9.3 %) 13.5 H Eosinophils % (0 - 5 %) 0 Basophils % (0.0 - 2.0 %) 0.1 Absolute Granulocytes (1.4 - 6.5 /CUMM) 7.3 H Absolute Lymphocytes (1.2 - 3.4 /CUMM) 0.6 L Absolute Monocytes (0.10 - 0.60 /CUMM) 1.2 H Absolute Eosinophils (0.0 - 0.7 /CUMM) 0 Absolute Basophils (0.0 - 0.2 /CUMM) 0 Miscellaneous Phlebotomy Draw Site RIGHT RADIAL Assessment/Plan Assessment/Plan Type 2 NSTEMI in context of COPD exacerbation, in patient with severe O2 dependant COPD. Severe hypercapnia improved with BiPAP. Sinus tachycardia secondary to respiratory failure. Continue ASA. No Heparin. no other cardiac investigation for the moment. Consult Acknowledgment - Thank you for your consult request.
[2018-03-29] VITALS: BP 110/70
[2018-03-29 05:18] LABS: ABSOLUTE BASOPHIL COUNT 0 /CUMM (0.0-0.2); ABSOLUTE EOSINOPHIL COUNT 0 /CUMM (0.0-0.7); ABSOLUTE GRANULOCYTE CT 5.8 /CUMM (1.4-6.5); ABSOLUTE LYMPH COUNT 0.7 /CUMM (1.2-3.4); ABSOLUTE MONOCYTE COUNT 0.6 /CUMM (0.10-0.60); BASOPHIL % 0.2 % (0.0-2.0); EOSINOPHIL % 0.1 % (0-5); GRANULOCYTE % 81.7 % (42.2-75.2); HEMATOCRIT 38.1 % (42-52); MEAN CORPUSCULAR HGB 29.2 PG (27.0-31.0); MEAN CORPUSCULAR HGB CONC 32.3 G/DL (33.0-37.0); MEAN CORPUSCULAR VOLUME 90.1 FL (80.0-94.0); MEAN PLATELET VOLUME 8.1 FL (7.4-10.4); PLATELET COUNT 164 /CUMM (130-400); RED BLOOD CELL CT 4.23 /CUMM (4.70-6.10); WHITE BLOOD CELL COUNT 7.1 /CUMM (4.8-10.8)
[2018-03-29 08:00] VITALS: BP 92/64
--- NOTE | 2018-03-29 08:07 | Cons- CRCU ---
General Information and HPI Consulting Request Date of Consult: 03/29/18 Allergies/Medications Allergies: Coded Allergies: No Known Allergies (03/28/18) Home Med List: Albuterol Sulfate (Proair Hfa) 90 MCG HFA.AER.AD 2 PUF INH Q4-6 PRN PRN COPD (Reported) Atorvastatin Calcium (Lipitor) 10 MG TABLET 1 TAB PO DAILY HLP (Reported) Fluticasone/Vilanterol (Breo Ellipta 200-25 Mcg INH) 200 MCG-25 MCG/DOSE BLST.W.DEV 1 INH INH DAILY COPD (Reported) Paroxetine HCl 40 MG TABLET 1 TAB PO DAILY DEPRESSION (Reported) Tiotropium [place] (Spiriva) 18 MCG CAP.W.DEV 1 CAP INH DAILY COPD (Reported) Trazodone HCl 50 MG TABLET 1 TAB PO QPM INSOMINA (Reported) Past History Travel History Traveled to [place] past 21 day No Medical History Blood Transfusion Hx: No Neurological: NONE EENT: NONE Cardiovascular: aortic aneurysm (abdominal) Respiratory: COPD Gastrointestinal: NONE Hepatic: NONE Renal: NONE Musculoskeletal: NONE Psychiatric: history of alcohol abuse, has been sober for many years (>10) Endocrine: NONE Blood Disorders: NONE Cancer(s): 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 Home Services at Home: Oxygen Smoking Status: Former Smoker ETOH Use: denies use Illicit Drug Use: denies illicit drug use Exam & Diagnostic Data Last 24 Hrs of Vital Signs/I&O Vital Signs Date Time Temp Pulse Resp B/P B/P Pulse O2 O2 Flow FiO2 Mean Ox Delivery Rate 03/29 0548 86 96 03/29 0347 96 BIPAP 30% 03/29 0224 103 94 03/29 0043 103 96 03/29 0000 95 BIPAP 30% 03/29 0000 98.5 98 20 110/70 95 BIPAP 30% 03/28 2230 104 96 03/28 2123 94 Nasal 2.0L Cannula 03/28 2036 Nasal 2.0L Cannula 03/28 1841 95 Nasal 2.0L Cannula 03/28 1821 98.3 106 18 90/60 95 Nasal 2.0L Cannula 03/28 1703 95 24 114/69 93 Nasal 2.0L Cannula 03/28 1645 92 Nasal 2.0L Cannula 03/28 1630 88 98 03/28 1557 82 24 83/62 100 BIPAP 03/28 1401 116 105/74 03/28 1330 96 BIPAP 35% 03/28 1310 116 22 105/74 96 BIPAP 35% 03/28 1255 97 122 03/28 1215 70 Nasal 2.0L Cannula 03/28 1213 131 24 91 Nasal 5.0L Cannula 03/28 1200 98.4 133 28 116/69 72 Room Air Intake & Output 03/29 1600 03/29 0800 05 0000 Intake Total 150 550 Output Total 305 250 Balance -155 300 Intake, IV 250 Intake, Oral 150 300 Output, Urine 305 250 Patient 50.802 kg Weight Weight Bed scale Measurement Method Physical Exam General Appearance: well developed/nourished, no apparent distress, alert, awake , comfortable Head: atraumatic, normal appearance Eyes: Bilateral: normal appearance, PERRL, EOMI. Ears, Nose, Throat: normal pharynx, normal ENT inspection Neck: normal inspection, supple, full range of motion Last 48 Hrs of Labs/José Antonio: Laboratory Tests 03/29/18 0440: Anion Gap 4 L, Estimated GFR > 60, Glucose 137 H, Calcium 8.3 L, Phosphorus 3.2, Magnesium 1.9, Total Bilirubin 0.5, AST 37, ALT 32, Albumin 3.4 L, CBC w Diff NO MAN DIFF REQ, RBC 4.23 L, MCV 90.1, MCH 29.2, MCHC 32.3 L, RDW 15.0 H , MPV 8.1, Gran % 81.7 H, Lymphocytes % 9.4 L, Monocytes % 8.6, Eosinophils % 0.1, Basophils % 0.2, Absolute Granulocytes 5.8, Absolute Lymphocytes 0.7 L, Absolute Monocytes 0.6, Absolute Eosinophils 0, Absolute Basophils 0 03/29/18 0010: Troponin I 0.20 *H 03/28/18 1810: Troponin I 0.34 *H 03/28/18 1740: pH 7.35, pCO2 62 *H, pO2 83, HCO3 34 H, ABG O2 Sat (Measured) 94.0 L, P-50 ( Temp Corrected) N, Carboxyhemoglobin 1.0 L, O2 Concentration % 30%, Temperature 98.4, Respiration Rate 24, O2 Delivery Method BIPAP, Vent Mode ST, Expiratory Pressure 6, Inspiratory Pressure 22, Phlebotomy Draw Site RIGHT RADIAL 03/28/18 1430: pH 7.29 *L, pCO2 94 *H, pO2 80, HCO3 44 H, ABG O2 Sat (Measured) 93.0 L, Carboxyhemoglobin 1.4 L, O2 Concentration % 35, Respiration Rate 18, O2 Delivery Method BIPAP, Vent Mode ST, Expiratory Pressure 4, Inspiratory Pressure 15, Phlebotomy Draw Site RIGHT RADIAL 03/28/18 1235: pH 7.28 *L, pCO2 93 *H, pO2 66 L, HCO3 43 H, ABG O2 Sat (Measured) 88.0 L, Carboxyhemoglobin 2.0, O2 Concentration % 5L, O2 Delivery Method N/C, Phlebotomy Draw Site RIGHT RADIAL 03/28/18 1220: Anion Gap 13, Estimated GFR > 60, BUN/Creatinine Ratio 38.6 H, Glucose 192 H, Calcium 9.3, Magnesium 1.9, Total Bilirubin 0.5, AST 37, ALT 29, Alkaline Phosphatase 64, Troponin I 0.34 *H, Vht-Q-Avmxtjktlnu Pept 2810 H, Total Protein 7.1, Albumin 4.5, Globulin 2.6, Albumin/Globulin Ratio 1.7, CBC w Diff NO MAN DIFF REQ, RBC 4.64 L, MCV 90.5, MCH 28.9, MCHC 31.9 L, RDW 15.1 H, MPV 7.9, Gran % 79.9 H, Lymphocytes % 6.5 L, Monocytes % 13.5 H, Eosinophils % 0, Basophils % 0.1, Absolute Granulocytes 7.3 H, Absolute Lymphocytes 0.6 L, Absolute Monocytes 1.2 H, Absolute Eosinophils 0, Absolute Basophils 0 Assessment/Plan CRCU Consult Acknowledgment - Thank you for your consult request. 03/28 1557 82 24 83/62 100 BIPAP 03/28 1401 116 105/74 03/28 1330 96 BIPAP 35% 03/28 1310 116 22 10574 96 BIPAP 35% 03/28 1255 97 122 03/28 1215 70 Nasal 2.0L Cannula 03/28 1213 131 24 91 Nasal 5.0L Cannula 03/28 1200 98.4 133 28 116/69 72 Room Air Intake & Output 03/29 1600 05/06 0800 05/06 0000 Intake Total 150 550 Output Total 305 250 Balance -155 300 Intake, IV 250 Intake, Oral 150 300 Output, Urine 305 250 Patient 50.802 kg Weight Weight Bed scale Measurement Method Physical Exam General Appearance: well developed/nourished, no apparent distress, alert, awake , comfortable Head: atraumatic, normal appearance Eyes: Bilateral: normal appearance, PERRL, EOMI. Ears, Nose, Throat: normal pharynx, normal ENT inspection Neck: normal inspection, supple, full range of motion Last 48 Hrs of Labs/José Antonio: Laboratory Tests 03/29/18 0440: Anion Gap 4 L, Estimated GFR > 60, Glucose 137 H, Calcium 8.3 L, Phosphorus 3.2, Magnesium 1.9, Total Bilirubin 0.5, AST 37, ALT 32, Albumin 3.4 L, CBC w Diff NO MAN DIFF REQ, RBC 4.23 L, MCV 90.1, MCH 29.2, MCHC 32.3 L, RDW 15.0 H , MPV 8.1, Gran % 81.7 H, Lymphocytes % 9.4 L, Monocytes % 8.6, Eosinophils % 0.1, Basophils % 0.2, Absolute Granulocytes 5.8, Absolute Lymphocytes 0.7 L, Absolute Monocytes 0.6, Absolute Eosinophils 0, Absolute Basophils 0 03/29/18 0010: Troponin I 0.20 *H 03/28/18 1810: Troponin I 0.34 *H 03/28/18 1740: pH 7.35, pCO2 62 *H, pO2 83, HCO3 34 H, ABG O2 Sat (Measured) 94.0 L, P-50 ( Temp Corrected) N, Carboxyhemoglobin 1.0 L, O2 Concentration % 30%, Temperature 98.4, Respiration Rate 24, O2 Delivery Method BIPAP, Vent Mode ST, Expiratory Pressure 6, Inspiratory Pressure 22, Phlebotomy Draw Site RIGHT RADIAL 03/28/18 1430: pH 7.29 *L, pCO2 94 *H, pO2 80, HCO3 44 H, ABG O2 Sat (Measured) 93.0 L, Carboxyhemoglobin 1.4 L, O2 Concentration % 35, Respiration Rate 18, O2 Delivery Method BIPAP, Vent Mode ST, Expiratory Pressure 4, Inspiratory Pressure 15, Phlebotomy Draw Site RIGHT RADIAL 03/28/18 1235: pH 7.28 *L, pCO2 93 *H, pO2 66 L, HCO3 43 H, ABG O2 Sat (Measured) 88.0 L, Carboxyhemoglobin 2.0, O2 Concentration % 5L, O2 Delivery Method N/C, Phlebotomy Draw Site RIGHT RADIAL 03/28/18 1220: Anion Gap 13, Estimated GFR > 60, BUN/Creatinine Ratio 38.6 H, Glucose 192 H, Calcium 9.3, Magnesium 1.9, Total Bilirubin 0.5, AST 37, ALT 29, Alkaline Phosphatase 64, Troponin I 0.34 *H, Qjz-C-Pcwquniposq Pept 2810 H, Total Protein 7.1, Albumin 4.5, Globulin 2.6, Albumin/Globulin Ratio 1.7, CBC w Diff NO MAN DIFF REQ, RBC 4.64 L, MCV 90.5, MCH 28.9, MCHC 31.9 L, RDW 15.1 H, MPV 7.9, Gran % 79.9 H, Lymphocytes % 6.5 L, Monocytes % 13.5 H, Eosinophils % 0, Basophils % 0.1, Absolute Granulocytes 7.3 H, Absolute Lymphocytes 0.6 L, Absolute Monocytes 1.2 H, Absolute Eosinophils 0, Absolute Basophils 0 Assessment/Plan CRCU Consult Acknowledgment - Thank you for your consult request.
--- NOTE | 2018-03-29 08:53 | PN- Resident CRCU ---
Nory BISHOP,Conrado 03/29/18 0853: Subjective HPI/CRCU Issues: 62-year-old male with past medical history of COPD/and stage, anxiety, depression, hyperlipidemia, insomnia, ascending aortic aneurysm, was brought into the emergency for worsening shortness of breath since one day. He has been having dyspnea, cough with white colored sputum since one day associated with some confusion yesterday at home. He has never been hospitalized for COPD exacerbation. He was found to be in severe respiratory acidosis with hypoxia and hypercarbia, requiring BiPAP. His ABG this last night showed pH 7.35, hypercarbia 62, PO2 83, HCO3 34 and he has been on BiPAP overnight, pending ABG this morning. He offers no complaints currently. 24 Hour Events: See above. Objective Vital Signs & I&O Last 8 Hrs of Vitals and I&O: Vital Signs Date Time Temp Pulse Resp B/P B/P Pulse O2 O2 Flow FiO2 Mean Ox Delivery Rate / 0800 94 Nasal 2.0L Cannula / 0800 97.2 78 32 92/64 94 Nasal 2.0L Cannula 05/06 0548 86 96 05/06 0347 96 BIPAP 30% 05/06 0224 103 94 05/06 0043 103 96 05/06 0000 95 BIPAP 30% 05/06 0000 98.5 98 20 110/70 95 BIPAP 30% 05/05 2230 104 96 05/05 2123 94 Nasal 2.0L Cannula 05/05 2036 Nasal 2.0L Cannula 05/05 1841 95 Nasal 2.0L Cannula 05/05 1821 98.3 106 18 90/60 95 Nasal 2.0L Cannula 05/05 1703 95 24 114/69 93 Nasal 2.0L Cannula 05/05 1645 92 Nasal 2.0L Cannula 05/05 1630 88 98 05/05 1557 82 24 83/62 100 BIPAP 05/05 1401 116 105/74 05/05 1330 96 BIPAP 35% 05/05 1310 116 22 105/74 96 BIPAP 35% 05/05 1255 97 122 05/05 1215 70 Nasal 2.0L Cannula 05/05 1213 131 24 91 Nasal 5.0L Cannula 05/05 1200 98.4 133 28 116/69 72 Room Air Exam General Appearance: no apparent distress, alert, awake, thin Head: atraumatic, normal appearance Ears, Nose, Throat: normal pharynx Neck: normal inspection, supple, full range of motion Respiratory: chest non-tender, no respiratory distress, quiet respiration, decreased breath sounds, no wheezing or crackles heard by me b/l, speaking in full sentences Cardiovascular: regular rate/rhythm, no JVD Gastrointestinal: normal bowel sounds, soft, non-tender Extremities: normal inspection, normal capillary refill, normal range of motion, no edema Cranial Nerves: normal hearing, normal speech, PERRL Skin: intact, normal color, warm/dry Skin Temp/Moisture Exam: Warm/Dry Sepsis Skin Exam (color): Normal for Ethnicity Back: normal inspection Sepsis Peripheral Pulse Location: Radial Sepsis Peripheral Pulse Exam: Normal Sepsis Cap Refill Exam: <2 Sec Nutrition Nutrition: P.O. diet Current Medications: Current Medications Sig/Alejandrina Start time Last Medication Dose Route Stop Time Status Admin Albuterol Sulfate 3 ML BID 03/28 2100 AC 03/28 INH 2049 Albuterol Sulfate 3 ML Q6 PRN 03/28 1730 DC INH Albuterol Sulfate 2 PUF Q4-6 PRN PRN 03/28 1645 DC INH Albuterol Sulfate 3 ML ONCE ONE 03/28 1330 DC 03/28 INH 03/28 1331 1330 Aspirin 81 MG DAILY 03/29 0900 AC 03/29 PO 1006 Aspirin 0 .STK-MED ONE 03/28 1400 DC PO Aspirin 325 MG ONCE ONE 03/28 1345 DC 05 PO 03/28 1346 1401 Atorvastatin Calcium 40 MG 1700 / 1700 AC 05 PO 1850 Azithromycin 500 MG DAILY 03/28 1633 AC 03/29 Sodium Chloride 250 ML IV 1007 Budesonide/ 2 PUF BID 03/28 2100 AC 03/29 Formoterol Fumarate INH 1006 Doxepin HCl 25 MG AT BEDTIME 03/29 2100 UNVr PO Enoxaparin Sodium 40 MG DAILY 03/29 0900 AC 03/29 SC 1006 Ipratropium [place] 2.5 ML ONCE ONE 03/28 1330 DC 03/28 INH 03/28 1331 1330 Methylprednisolone 40 MG Q8 05 2200 AC 05 IV 0607 Methylprednisolone 0 .STK-MED ONE 03/28 1337 DC .ROUTE Methylprednisolone 125 MG ONCE ONE 03/28 1330 DC 05 IV 03/28 1331 1334 Metoprolol Tartrate 0 .STK-MED ONE 03/28 1359 DC IV Metoprolol Tartrate 5 MG ONCE ONE 03/28 1345 DC 03/28 IV 03/28 1346 1401 Paroxetine HCl 40 MG DAILY 03/28 1856 DC 03/29 PO 1006 Sodium Chloride 1,000 ML BOLUS ONE 03/28 1630 DC 03/28 IV 03/28 1729 1630 Tiotropium [place] 1 PUF DAILY 03/29 0900 AC 03/29 INH 1006 Trazodone HCl 50 MG QPM PRN 03/28 1900 AC PO Impression/Plan Impression/Problem List Impression: 62-year-old male with past medical history of COPD/and stage, anxiety, depression, hyperlipidemia, insomnia, ascending aortic aneurysm, was brought into the emergency for worsening shortness of breath since one day. He was admitted in the ICU given his acute on chronic respiratory failure and the need for close observation. He seems to be improving now, and we are managing him for the following issues: RESPIRATORY #Acute on chronic hypoxic hypercarbic respiratory failure, secondary to COPD exacerbation/bronchitis -Continue to monitor for respiratory status changes -Appreciate Pulm recs -Patient is currently in nasal cannula, repeat ABG -If patient's respiratory status improves/stabilizes an ABG does not show CO2>60 , then can be transferred to telemetry floor later today -Change IV steroids from every 8 hours to every 12 hours -Continue TRC/nebs -Continue azithromycin for total 5 days ID #Acute bronchitis -Continue Azithromycin for 5 days CARDIOLOGY #Type 2 MN, 2/2 resp failure -Troponin has trended down, no ACS -cardio recs appreciated -Will not anticoagulate HEME -No leukocytosis, stable METABOLIC -Will watch closely, as mildly elevated potassium -Stable ALIMENTARY -Advanced diet to PO already, stable NEUROLOGY -No more confusion, stable NEPHROLOGY -Stable 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 COPD with exacerbation 2. Myocardial infarction type 2 Pain Ratin Tomorrow's Labs & Rationales: CBC, ICU lab bundle Plan DVT/Prophylaxis: mechanical, pharmacological Clifton Morrison MD 03/29/18 0854: Attending MD Review Statement Attending Sign Off Attending Cosign Statement: I have: examined this patient, reviewed avalbl EMR data, personally reviewd images, discussd w/resident/PA/CAPPER MACHINE OPERATOR, discussed mgmt plan w/eddie, discussed mgmt plan w/CM, discussed mgmt plan w/pt, agreed w/resident/PA/CAPPER MACHINE OPERATOR, amended to note. Other Findings: I, Clifton Morrison M.D. have examined this patient, reviewed available EMR data, personally reviewed images, discussed with resident/PA/CAPPER MACHINE OPERATOR, discussed management plan with housestaff and nursing staff, discussed managment plan all of healthcare providers, discussed management plan with patient and/or family, agreed with resident/PA/CAPPER MACHINE OPERATOR. The past history and parts of the chart have been autopopulated. Impression 62 year old man * acute hypoxemic and hypercarbic respiratory failure secondary to exacerbation of COPD likely secondary to bronchitis * type 2 MN - secondary to hypoxemia Plan Respiratory -off bipap this am -abg this morning -likely chronic hypercarbia, if pco2 is >60, will qualify for bipap, otherwise can stop -solumedrol 40mg iv q8h - reduce to q12h -trc/nebs -5 days of zithromax -continue symbicort/spiriva ID -5 days of zithromax/bronchitis -sputum cx if possible CVS -cardiology follow up -aortic aneurysm follow up as per cardiology Heme -monitor cbc -next blood draw check coags Metabolic -monitor electrolytes, ins/outs, creatinine Alimentary -advance diet if off bipap Neuro -no acute issues DVT prophylaxis at all times - lovenox subcutaneously TTS 35 min Downgrade to telemetry
[2018-03-29] MEDS ORDERED: DOXEPIN HCL50 MG PO (10:22)
[2018-03-29 11:54] VITALS: BP 90/60
--- NOTE | 2018-03-29 12:13 | PN- Cardiology ---
Subjective Subjective: Patient is feeling much better today. Had BIPAP overnight, no respiratory distress this morning. Denies chest pains. Troponins trending down. CXR does not show any consolidation. Objective Vital Signs and I&Os Vital Signs Date Time Temp Pulse Resp B/P B/P Pulse O2 O2 Flow FiO2 Mean Ox Delivery Rate 03/29 1154 98.2 92 22 90/60 99 Nasal 3.0L Cannula 03/29 1147 96 Nasal 3.0L Cannula 03/29 0800 94 Nasal 2.0L Cannula 03/29 0800 97.2 78 32 92/64 94 Nasal 2.0L Cannula / 0548 86 96 05/ 0347 96 BIPAP 30% 03/29 0224 103 94 / 0043 103 96 / 0000 95 BIPAP 30% 03/29 0000 98.5 98 20 110/70 95 BIPAP 30% 03/28 2230 104 96 / 2123 94 Nasal 2.0L Cannula 03/28 2036 Nasal 2.0L Cannula 03/28 1841 95 Nasal 2.0L Cannula 03/28 1821 98.3 106 18 90/60 95 Nasal 2.0L Cannula 03/28 1703 95 24 114/69 93 Nasal 2.0L Cannula 03/28 1645 92 Nasal 2.0L Cannula 05/05 1630 88 98 05/05 1557 82 24 83/62 100 BIPAP 05/05 1401 116 105/74 05/05 1330 96 BIPAP 35% 05/05 1310 116 22 105/74 96 BIPAP 35% 05/05 1255 97 122 05/05 1215 70 Nasal 2.0L Cannula 03/28 1213 131 24 91 Nasal 5.0L Cannula Intake & Output 03/29 1600 05/06 0800 05/06 0000 05/05 1600 05/05 0800 05/05 0000 Intake Total 150 550 0 Output Total 305 250 Balance -155 300 0 Intake, IV 250 Intake, Oral 150 300 0 Output, Urine 305 250 Patient 112 lb 110 lb Weight Weight Bed scale Reported by Patient Measurement Method Physical Exam: General Appearance Alert, Oriented X3, Cooperative, No Acute Distress HEENT Atraumatic, PERRLA, EOMI, Mucous Membr. moist/pink Neck Supple, No JVD, trachea midline Cardiovascular Regular Rate, Normal S1, Normal S2, No audible murmur Lungs Normal Air Movement, decreased breath sounds left base, no audible wheezing. Abdomen Normal Bowel Sounds, Soft, No Tenderness ExtremitiesNo Cyanosis, No Edema, good capillary refill Current Medications: Current Medications Sig/Alejandrina Start time Last Medication Dose Route Stop Time Status Admin Albuterol Sulfate 3 ML BID 03/28 2100 AC 03/29 INH 1147 Albuterol Sulfate 3 ML Q6 PRN 03/28 1730 DC INH Albuterol Sulfate 2 PUF Q4-6 PRN PRN 03/28 1645 DC INH Albuterol Sulfate 3 ML ONCE ONE 03/28 1330 DC 03/28 INH 03/28 1331 1330 Aspirin 81 MG DAILY 03/29 0900 AC 03/29 PO 1006 Aspirin 0 .STK-MED ONE 03/28 1400 DC PO Aspirin 325 MG ONCE ONE 03/28 1345 DC 03/28 PO 03/28 1346 1401 Atorvastatin Calcium 40 MG 1700 03/28 1700 AC 05 PO 1850 Azithromycin 500 MG DAILY 03/28 1633 AC 03/29 Sodium Chloride 250 ML IV 1007 Budesonide/ 2 PUF BID 03/28 2100 AC 03/29 Formoterol Fumarate INH 1006 Doxepin HCl 25 MG AT BEDTIME 03/29 2100 AC PO Enoxaparin Sodium 40 MG DAILY 03/29 0900 AC 03/29 SC 1006 Ipratropium Freedom 2.5 ML ONCE ONE 03/28 1330 DC 05 INH 03/28 1331 1330 Methylprednisolone 40 MG Q12 03/29 2100 AC IV Methylprednisolone 40 MG Q8 03/28 2200 DC 03/29 IV 0607 Methylprednisolone 0 .STK-MED ONE 03/28 1337 DC .ROUTE Methylprednisolone 125 MG ONCE ONE 03/28 1330 DC 05 IV 03/28 1331 1334 Metoprolol Tartrate 0 .STK-MED ONE 03/28 1359 DC IV Metoprolol Tartrate 5 MG ONCE ONE 03/28 1345 DC 03/28 IV 03/28 1346 1401 Paroxetine HCl 40 MG DAILY 03/28 1856 DC PO Sodium Chloride 1,000 ML BOLUS ONE 03/28 1630 DC 05 IV 03/28 1729 1630 Tiotropium [place] 1 PUF DAILY 03/29 0900 AC 03/29 INH 1006 Trazodone HCl 50 MG QPM PRN 03/28 1900 AC PO Results Last 48 Hrs of Labs/Mics: Laboratory Tests 03/29/18 1140: pH 7.35, pCO2 72 *H, pO2 97, HCO3 39 H, ABG O2 Sat (Measured) 96.0, Carboxyhemoglobin 0.9 L, O2 Concentration % 3L, O2 Delivery Method NC, Phlebotomy Draw Site LEFT RADIAL 03/29/18 0440: Anion Gap 4 L, Estimated GFR > 60, Glucose 137 H, Calcium 8.3 L, Phosphorus 3.2, Magnesium 1.9, Total Bilirubin 0.5, AST 37, ALT 32, Albumin 3.4 L, CBC w Diff NO MAN DIFF REQ, RBC 4.23 L, MCV 90.1, MCH 29.2, MCHC 32.3 L, RDW 15.0 H , MPV 8.1, Gran % 81.7 H, Lymphocytes % 9.4 L, Monocytes % 8.6, Eosinophils % 0.1, Basophils % 0.2, Absolute Granulocytes 5.8, Absolute Lymphocytes 0.7 L, Absolute Monocytes 0.6, Absolute Eosinophils 0, Absolute Basophils 0 03/29/18 0010: Troponin I 0.20 *H 03/28/18 1810: Troponin I 0.34 *H 03/28/18 1740: pH 7.35, pCO2 62 *H, pO2 83, HCO3 34 H, ABG O2 Sat (Measured) 94.0 L, P-50 ( Temp Corrected) N, Carboxyhemoglobin 1.0 L, O2 Concentration % 30%, Temperature 98.4, Respiration Rate 24, O2 Delivery Method BIPAP, Vent Mode ST, Expiratory Pressure 6, Inspiratory Pressure 22, Phlebotomy Draw Site RIGHT RADIAL 03/28/18 1430: pH 7.29 *L, pCO2 94 *H, pO2 80, HCO3 44 H, ABG O2 Sat (Measured) 93.0 L, Carboxyhemoglobin 1.4 L, O2 Concentration % 35, Respiration Rate 18, O2 Delivery Method BIPAP, Vent Mode ST, Expiratory Pressure 4, Inspiratory Pressure 15, Phlebotomy Draw Site RIGHT RADIAL 03/28/18 1235: pH 7.28 *L, pCO2 93 *H, pO2 66 L, HCO3 43 H, ABG O2 Sat (Measured) 88.0 L, Carboxyhemoglobin 2.0, O2 Concentration % 5L, O2 Delivery Method N/C, Phlebotomy Draw Site RIGHT RADIAL 03/28/18 1220: Anion Gap 13, Estimated GFR > 60, BUN/Creatinine Ratio 38.6 H, Glucose 192 H, Calcium 9.3, Magnesium 1.9, Total Bilirubin 0.5, AST 37, ALT 29, Alkaline Phosphatase 64, Troponin I 0.34 *H, Wza-C-Msootwsevcq Pept 2810 H, Total Protein 7.1, Albumin 4.5, Globulin 2.6, Albumin/Globulin Ratio 1.7, CBC w Diff NO MAN DIFF REQ, RBC 4.64 L, MCV 90.5, MCH 28.9, MCHC 31.9 L, RDW 15.1 H, MPV 7.9, Gran % 79.9 H, Lymphocytes % 6.5 L, Monocytes % 13.5 H, Eosinophils % 0, Basophils % 0.1, Absolute Granulocytes 7.3 H, Absolute Lymphocytes 0.6 L, Absolute Monocytes 1.2 H, Absolute Eosinophils 0, Absolute Basophils 0 Assessment/Plan Assessment/Plan Hypercapnic respiratory failure due to COPD exacerbation without evidence of pneumonia on imaging. Type II NSTEMI in the context, patient treated with ASA, does not require heparin. Compensatory sinus tachycardia. Continue telemetry? Yes
[2018-03-29 15:57] VITALS: BP 108/70
[2018-03-29 22:00] VITALS: BP 110/70
[2018-03-30 06:08] LABS: ABSOLUTE BASOPHIL COUNT 0 /CUMM (0.0-0.2); ABSOLUTE EOSINOPHIL COUNT 0 /CUMM (0.0-0.7); ABSOLUTE GRANULOCYTE CT 7.5 /CUMM (1.4-6.5); ABSOLUTE LYMPH COUNT 0.7 /CUMM (1.2-3.4); ABSOLUTE MONOCYTE COUNT 0.6 /CUMM (0.10-0.60); BASOPHIL % 0 % (0.0-2.0); EOSINOPHIL % 0.1 % (0-5); GRANULOCYTE % 85.7 % (42.2-75.2); HEMATOCRIT 36.6 % (42-52); MEAN CORPUSCULAR HGB 29.1 PG (27.0-31.0); MEAN CORPUSCULAR HGB CONC 32.3 G/DL (33.0-37.0); MEAN CORPUSCULAR VOLUME 90.1 FL (80.0-94.0); MEAN PLATELET VOLUME 8.7 FL (7.4-10.4); PLATELET COUNT 191 /CUMM (130-400); RBC DISTRIBUTION WIDTH 14.9 % (11.5-14.5); RED BLOOD CELL CT 4.06 /CUMM (4.70-6.10); WHITE BLOOD CELL COUNT 8.8 /CUMM (4.8-10.8)
[2018-03-30 06:10] LABS: PT 11.4 SEC (9.4-12.5); PTT 29 SEC (25-37)
--- NOTE | 2018-03-30 06:42 | ECHOCARDIOGRAM REPORT ---
EDD CAMPOS Age: 62 : 1955 Gender: M Exam Date: 03/29/2018 08:54 Exam Location: [facility] Ht (in): 71 Wt (lb): 110 BSA: 1.56 BP: 110 / 70 Ordering Physician: Lenora Shay MD Referring Physician: Vernon Faye MD, PhD Technologist: Demetria Cruz [facility] Room Number: 109 Indications: SHORTNESS OF BREATH Rhythm: Sinus Technical Quality: good FINDINGS Left Ventricle Normal left ventricular size, wall thickness and systolic function with no obvious regional wall motion abnormalities. Diastolic filling pattern is consistent with impaired LV relaxation. The ejection fraction is visually estimated at 70%. Right Ventricle The right ventricle is normal in size and function. Right Atrium The right atrium is normal in size. Left Atrium The left atrium is normal in size. The interatrial septum is intact. Mitral Valve The mitral valve is normal in structure and function. There is trace mitral regurgitation. Aortic Valve Structurally normal aortic valve without significant sclerosis or stenosis. There is no aortic regurgitation. Tricuspid Valve The tricuspid valve is normal in structure and function. There is trace tricuspid regurgitation. Pulmonary artery systolic pressure is mildly elevated to 48mmHg. Pulmonic Valve Structurally normal pulmonic valve. There is no pulmonic regurgitation. Pericardium Normal pericardium without effusion. No pleural effusion. Great Vessels Normal aortic root dimension. The aortic arch and great vessels are well seen and are normal. CONCLUSIONS 1. Normal EF of 70% with impaired LV relaxation. 2. Trace mitral regurgitation. 3. Trace tricuspid regurgitation. 4. Mild pulmonary hypertension. Vernon Faye M.D. (Electronically Signed) Final Date: 30 Mar 2018 06:41 MEASUREMENTS (Male / Female) Normal Values 2D ECHO LV Diastolic Diameter PLAX 4.0 cm 4.2 - 5.9 / 3.9 - 5.3 cm LV Systolic Diameter PLAX 2.2 cm 2.1 - 4.0 cm LV Fractional Shortening PLAX 45.0 % 25 - 46 % LV Ejection Fraction 2D Teich 76.9 % IVS Diastolic Thickness 0.9 cm LVPW Diastolic Thickness 1.0 cm LV Relative Wall Thickness 0.5 RV Internal Dim ED PLAX 2.7 cm 1.9 - 3.8 cm LVOT Diameter 1.8 cm Aortic Root Diameter 3.5 cm LA Systolic Diameter LX 2.6 cm 3.0 - 4.0 / 2.7 - 3.8 cm LA Volume 31.0 cm 18 - 58 / 22 - 52 cm DOPPLER AV Peak Velocity 111.0 cm/s AV Peak Gradient 4.9 mmHg AV Mean Velocity 79.0 cm/s AV Mean Gradient 3.0 mmHg AV Velocity Time Integral 21.3 cm LVOT Peak Velocity 96.3 cm/s LVOT Peak Gradient 3.7 mmHg LVOT Mean Velocity 54.6 cm/s LVOT Mean Gradient 2.0 mmHg LVOT Velocity Time Integral 14.7 cm LVOT Stroke Volume 37.4 cm AV Area Cont Eq vti 1.8 cm AV Area Cont Eq pk 2.2 cm MV Peak Velocity 72.3 cm/s MV Peak Gradient 2.1 mmHg MV Mean Velocity 46.2 cm/s MV Mean Gradient 1.0 mmHg Mitral E Point Velocity 50.8 cm/s Mitral A Point Velocity 56.8 cm/s Mitral E to A Ratio 0.9 MV PHT Velocity 67.9 cm/s MV Deceleration Hayes 234.0 cm/s MV Pressure Half Time 87.1 ms MV Area PHT 2.5 cm MV Deceleration Time 296.0 ms TR Peak Velocity 326.0 cm/s TR Peak Gradient 42.5 mmHg Right Atrial Pressure 5.0 mmHg Pulmonary Artery Systolic Pressu 47.5 mmHg Right Ventricular Systolic Press 47.5 mmHg PV Peak Velocity 93.0 cm/s PV Peak Gradient 3.5 mmHg PV Mean Velocity 64.0 cm/s PV Mean Gradient 2.0 mmHg PV Velocity Time Integral 17.9 cm LV E' Lateral Velocity 10.2 cm/s Mitral E to LV E' Lateral Ratio 5.0 LV E' Septal Velocity 4.8 cm/s Mitral E to LV E' Septal Ratio 10.6
[2018-03-30 08:00] VITALS: BP 112/76
--- NOTE | 2018-03-30 08:25 | PN- Resident CRCU ---
Nicanor Shay 03/30/18 0816: Subjective HPI/CRCU Issues: Acute on chronic hypoxic and hypercarbic respiratory failure from COPD exacerbation Type II NH/elevated troponin Sinus tachycardia-resolved Hypotension-resolved 24 Hour Events: Patient was seen and examined this morning He is alert awake and oriented to time place and person No acute events overnight Patient was on BiPAP overnight Tolerating well Offers no complaints this morning Vitals afebrile, heart rate 66, respiratory rate 20, blood pressure 110/70, on BiPAP 6, 22, 24. Saturating at 99%. Adequate urine output Had 1 bowel movement Objective Vital Signs & I&O Last 8 Hrs of Vitals and I&O: Vital Signs Date Time Temp Pulse Resp B/P B/P Pulse O2 O2 Flow FiO2 Mean Ox Delivery Rate 03/30 0623 66 99 03/30 0348 67 97 03/30 0100 74 98 Exam General Appearance: well developed/nourished, no apparent distress, alert, awake , comfortable Other Physical Findings: HEENT Atraumatic, PERRLA, EOMI, Mucous Membr. moist/pink Neck Supple, No JVD Lymphatic Cervical nl Cardiovascular Regular Rate, Normal S1, Normal S2, No Murmurs Lungs Normal Air Movement, decreased breath sounds and b/l wheezes and crackles Abdomen Normal Bowel Sounds, Soft, No Tenderness Extremities No Clubbing, No Cyanosis, No Edema, Normal Pulses, No Tenderness/ Swelling Vascular Normal Pulses, Pulses Symmetrical Current Medications: Current Medications Sig/Alejandrina Start time Last Medication Dose Route Stop Time Status Admin Albuterol Sulfate 3 ML BID 03/28 2100 AC 03/29 INH 1918 Aspirin 81 MG DAILY 03/29 900 AC 03/29 PO 1006 Atorvastatin Calcium 40 MG 1700 03/28 1700 AC 05/ PO 1730 Azithromycin 500 MG DAILY 03/28 1633 AC 03/29 Sodium Chloride 250 ML IV 1007 Budesonide/ 2 PUF BID 03/28 2100 AC 03/29 Formoterol Fumarate INH 2007 Doxepin HCl 25 MG AT BEDTIME 03/29 2100 AC / PO 2010 Enoxaparin Sodium 40 MG DAILY 03/29 900 AC 03/29 SC 1006 Methylprednisolone 40 MG Q12 03/29 2100 AC 03/29 IV 2011 Methylprednisolone 40 MG Q8 03/28 2200 DC 03/29 IV 0607 Paroxetine HCl 40 MG DAILY 03/28 1856 DC PO Tiotropium [place] 1 PUF DAILY 03/29 0900 AC 03/29 INH 1006 Trazodone HCl 50 MG QPM PRN 03/28 1900 AC PO Impression/Plan Impression/Problem List Impression: This is a 62-year-old man with past medical history significant for end-stage COPD, on home oxygen, on inhaler treatments, follows up with Dr. Lynn, anxiety, depression, hyperlipidemia, insomnia, ascending aortic aneurysm, chronic respiratory failure was brought in by ambulance for evaluation of worsening shortness of breath for 1 day. Vitals at the time of admission Afebrile, heart rate 133, respiratory rate 28, blood pressure 116/69, saturating at 72 on 2 L nasal cannula. pertinent labs WBC 9.1, hemoglobin 13 and hematocrit 42, platelets 184 Sodium 136, potassium 5.2, BUN 27, creatinine 0.7, platelets 192 Troponin 0.34 ProBNP 2810 Chest x-ray showed Hyperinflation/COPD. No acute intrathoracic disease. EKG showed sinus rhythm, sinus tachycardia, rate 130, normal MO interval, right bundle branch block, no acute ST-T wave changes. V3 showed 0.[address] elevations CTA 1. No evidence of pulmonary embolism. 2. Extensive paraseptal and centrilobular emphysema is again seen with multifocal areas of reticular nodular opacities in the lungs, similar to prior study. There are 2 nodules, however which are changing, one being new in the right upper lobe and the other being an enlarging nodule by 2 mm in the right upper lobe compared to 12/04/2017. Given the relatively rapid time course of change, inflammatory etiology may be possible. However, given the extensive underlying obstructive lung disease, neoplastic etiology is not excluded and short interval follow-up assessment in 3 months is recommended. 3. Enlarged central pulmonary arteries, suspicious for pulmonary arterial hypertension. 4. Aneurysmal aorta, similar to prior exam. 5. Mild coronary artery calcifications. -------- 1. Acute hypoxic and hypercarbic respiratory failure possibly from COPD exacerbation Patient presented with worsening shortness of breath for 1 day, associated with cough and sputum production. He was hypoxic up to 70% on 2 L nasal cannula requiring BiPAP. Initial ABG 7.29, 94, 44, PO2 66. * Patient was admitted to ICU for BiPAP requirement for the first time * Possible differentials for acute hypoxia and hypercarbic respiratory failure most possibly COPD exacerbation, end-stage COPD, bronchitis given his cough and sputum production. Of note patient has end-stage COPD, oxygen dependent. Never intubated. * Continue BiPAP prnn and night time * Repeat ABG prn * Monitor vitals every shift * IV methylprednisolone 40 every 12 hours * IV azithromycin for 5 days-day3 * TRC nebs * Sputum culture * Monitor for fevers/leukocytosis * Dr morrison on board Elevated troponin-type II NH Patient was found to have elevated troponin 0.34 at the time of admission. He denied any chest pain, diaphoresis, sweating, palpitations. However he has shortness of breath from COPD exacerbation. Elevated troponin most likely from demand ischemia. EKG showed sinus rhythm, sinus tachycardia, rate 130, PVC, right bundle branch block. V3 showed 0.[address] elevations. * Elevated troponin most likely demand ischemia from acute hypoxic respiratory failure and COPD exacerbation * Serial troponins and EKG- trended * Continue aspirin 81 daily * Continue Lipitor 40 daily * started plavix 75 daily * Follow-up echocardiogram showed ejection fraction 70% with impaired left ventricular relaxation * Appreciate cardiology recommendations * This patient has coronary calcifications and multiple postivie cardiac enzymes. He is without chest pain however. In considertation of his coronary artery disease this patient will need an eventual cardiac catheterization. Sinus tachycardia Patient presented with tachycardia ranging in between 120-140. EKG showed sinus tachycardia rate 133. He received IV Lopressor 5 mg in the emergency room with follow-up heart rates varying in between 80-100. * Given sinus tachycardia, hypoxia, shortness of breath CT angiogram was done, ruled out pulmonary embolism. * Continuous telemetry monitoring * Monitor heart rates closely Hypotension- resolved provide Gentle hydration vs aggressive hydration based on blood pressure. rule out stroke This patient reported problems with dropping items that brought him to the ER. will Obtain a head CT to evaluate for stroke. Severe COPD/ oxygen dependent Patient has extensive history of smoking 2 packs per day for 45 years. He has been getting outpatient CAT scan chest every year for screening. He has severe emphysema, nodular opacities of both lower lungs. He has been following up Dr. Lynn investigation officer as an outpatient for end-stage COPD. He uses oxygen continuously 2 L. He was never admitted to the hospital for COPD exacerbation. He was never intubated. * [facility] nebs Enlarging lUNG NODULES There are 2 nodules, however which are changing, one being new in the right upper lobe and the other being an enlarging nodule by 2 mm in the right upper lobe compared to 12/04/2017. However, given the extensive underlying obstructive lung disease, neoplastic etiology is not excluded and short interval follow-up assessment in 3 months is recommended. * Follow up CAT scan in 3 months Aneurysmal aorta CAT scan chest 12/2016 showed Borderline ascending aortic aneurysm with maximal AP diameter of 4.0 cm. CTA 03/28/2018 showed The ascending aorta is ectatic, measuring 3.7 cm at the level of the right main pulmonary artery. The descending limb of the aortic arch measures 4.1 cm and the descending aorta 2.8 cm. * No further intervention for now given aneurysmal aorta similar to prior exam. * Measures less than 5.5 cm. * Yearly follow up recommended. Hyperlipidemia-continue home medications Lipitor 40 daily Insomnia continue trazodone 50 at bedtime Depression continue doxepin at bedtime Patient is full code DVT prophylaxis alps and subcutaneous Lovenox Reg diet Pain pathway #1 Central line- none #2 Arterial line- none #3 Arredondo catheter- none #4 Rectal tube- none. #5 NG tube- none. #6 IV/peripheral line- present 03/28/18 #7 IV drips- None #8 Vent settings - BIPAP #9 pressors- none. Problem List: 1. Acute hypercapnic respiratory failure 2. COPD with exacerbation 3. Elevated troponin 4. Myocardial infarction type 2 Pain Ratin Tomorrow's Labs & Rationales: cbc icu bundle Plan DVT/Prophylaxis: mechanical, pharmacological Clifton Morrison MD 03/30/18 1032: Attending MD Review Statement Attending Sign Off Attending Cosign Statement: I have: examined this patient, reviewed aval EMR data, personally reviewd images, discussd w/resident/PA/CANVAS SHRINKER, discussed mgmt plan w/eddie, discussed mgmt plan w/CM, discussed mgmt plan w/pt, agreed w/resident/PA/CANVAS SHRINKER, amended to note. Other Findings: Clifton Welch M.D. have examined this patient, reviewed available EMR data, personally reviewed images, discussed with resident/PA/CANVAS SHRINKER, discussed management plan with housestaff and nursing staff, discussed managment plan all of healthcare providers, discussed management plan with patient and/or family, agreed with resident/PA/CANVAS SHRINKER. The past history and parts of the chart have been autopopulated. Impression 62 year old man * acute on chronic hypoxemic and hypercarbic respiratory failure secondary to exacerbation of COPD likely secondary to bronchitis * type 2 NH - secondary to hypoxemia Plan Respiratory -hypercarbia is chronic - based on pco2 can qualify for nocturnal bipap -continue solumedrol iv q12h -trc/nebs -5 days of zithromax -continue symbicort/spiriva ID -5 days of zithromax/bronchitis -sputum cx if possible CVS -cardiology follow up -aortic aneurysm follow up as per cardiology - stable Heme -monitor cbc, coags Metabolic -monitor electrolytes, ins/outs, creatinine Alimentary -tolerating diet Neuro -no acute issues DVT prophylaxis at all times - lovenox subcutaneously Telemetry hold
--- NOTE | 2018-03-30 08:32 | Transfer of Care Summary ---
Hospital Course Course Hospital Course: This is a 62-year-old man with past medical history significant for end-stage COPD, on home oxygen, on inhaler treatments, follows up with Dr. Lynn, anxiety, depression, hyperlipidemia, insomnia, ascending aortic aneurysm, chronic respiratory failure was brought in by ambulance for evaluation of worsening shortness of breath for 1 day. Vitals at the time of admission Afebrile, heart rate 133, respiratory rate 28, blood pressure 116/69, saturating at 72 on 2 L nasal cannula. pertinent labs WBC 9.1, hemoglobin 13 and hematocrit 42, platelets 184 Sodium 136, potassium 5.2, BUN 27, creatinine 0.7, platelets 192 Troponin 0.34 ProBNP 2810 Chest x-ray showed Hyperinflation/COPD. No acute intrathoracic disease. EKG showed sinus rhythm, sinus tachycardia, rate 130, normal [place] interval, right bundle branch block, no acute ST-T wave changes. V3 showed 0.[address] elevations CTA 1. No evidence of pulmonary embolism. 2. Extensive paraseptal and centrilobular emphysema is again seen with multifocal areas of reticular nodular opacities in the lungs, similar to prior study. There are 2 nodules, however which are changing, one being new in the right upper lobe and the other being an enlarging nodule by 2 mm in the right upper lobe compared to 12/04/2017. Given the relatively rapid time course of change, inflammatory etiology may be possible. However, given the extensive underlying obstructive lung disease, neoplastic etiology is not excluded and short interval follow-up assessment in 3 months is recommended. 3. Enlarged central pulmonary arteries, suspicious for pulmonary arterial hypertension. 4. Aneurysmal aorta, similar to prior exam. 5. Mild coronary artery calcifications. -------- Acute hypoxic and hypercarbic respiratory failure possibly from COPD exacerbation Patient presented with worsening shortness of breath for 1 day, associated with cough and sputum production. He was hypoxic up to 70% on 2 L nasal cannula requiring BiPAP. Initial ABG 7.29, 94, 44, PO2 66. Patient was admitted to ICU for BiPAP requirement for the first time. Possible differentials for acute hypoxia and hypercarbic respiratory failure most possibly COPD exacerbation, end -stage COPD, bronchitis given his cough and sputum production. Of note patient has end-stage COPD, oxygen dependent. Never intubated. Continued BiPAP prnn and night time. Patient was on IV methylprednisolone( changed to prednisone ) and IV azithromycin for possible bronchitis. Patient qualified for nocturnal BiPAP. Elevated troponin-type II [place] Patient was found to have elevated troponin 0.34 at the time of admission. He denied any chest pain, diaphoresis, sweating, palpitations. However he has shortness of breath from COPD exacerbation. Elevated troponin most likely from demand ischemia. EKG showed sinus rhythm, sinus tachycardia, rate 130, PVC, right bundle branch block. V3 showed 0.[address] elevations. Elevated troponin most likely demand ischemia from acute hypoxic respiratory failure and COPD exacerbation. Serial troponins and EKG were trended 0.34, 0.34, 0.20. Continue aspirin 81 daily and Lipitor 40 daily. Follow-up echocardiogram showed ejection fraction 70% with impaired left ventricular relaxation. This patient has coronary calcifications and multiple postivie cardiac enzymes. He is without chest pain however. In considertation of his coronary artery disease this patient will need an eventual cardiac catheterization. Patient was started on Plavix 75 daily as per cardio recommendations. Sinus tachycardia- resolved Patient presented with tachycardia ranging in between 120-140. EKG showed sinus tachycardia rate 133. He received IV Lopressor 5 mg in the emergency room with follow-up heart rates varying in between 80-100. Given sinus tachycardia, hypoxia, shortness of breath CT angiogram was done, ruled out pulmonary embolism. Continuous telemetry monitoring. Hypotension- resolved provided Gentle hydration based on blood pressure. rule out stroke This patient reported problems with dropping items that brought him to the ER. Obtained a head CT to evaluate for stroke. No acute intracranial pathology was found. Severe COPD/ oxygen dependent Patient has extensive history of smoking 2 packs per day for 45 years. He has been getting outpatient CAT scan chest every year for screening. He has severe emphysema, nodular opacities of both lower lungs. He has been following up Dr. Lynn remediation technician as an outpatient for end-stage COPD. He uses oxygen continuously 2 L. He was never admitted to the hospital for COPD exacerbation. He was never intubated. * [facility] nebs ENLARGING lUNG NODULES There are 2 nodules, however which are changing, one being new in the right upper lobe and the other being an enlarging nodule by 2 mm in the right upper lobe compared to 12/04/2017. However, given the extensive underlying obstructive lung disease, neoplastic etiology is not excluded and short interval follow-up assessment in 3 months is recommended. * Follow up CAT scan in 3 months * Needs to follow-up with Dr. Kolb remediation technician as an outpatient Aneurysmal aorta CAT scan chest 12/2016 showed Borderline ascending aortic aneurysm with maximal AP diameter of 4.0 cm. CTA 03/28/2018 showed The ascending aorta is ectatic, measuring 3.7 cm at the level of the right main pulmonary artery. The descending limb of the aortic arch measures 4.1 cm and the descending aorta 2.8 cm. * No further intervention for now given aneurysmal aorta similar to prior exam. * Measures less than 5.5 cm. * Yearly follow up recommended. Hyperlipidemia-continue home medications Lipitor 40 daily Insomnia continue trazodone 50 at bedtime Depression continue doxepin at bedtime Patient is full code DVT prophylaxis alps and subcutaneous Lovenox Reg diet Pain pathway #1 Central line- none #2 Arterial line- none #3 Arredondo catheter- none #4 Rectal tube- none. #5 NG tube- none. #6 IV/peripheral line- present 03/28/18 #7 IV drips- Normal saline #8 Vent settings - BIPAP #9 pressors- none. Assessment/Plan: .
--- NOTE | 2018-03-30 09:29 | PN- Cardiology ---
Subjective Subjective: * The patient reports that he came to the ER because of his dropping items although he also noted a cough and shortness of breath that was beyond his baseline. * New and enlarging pulmonary nodules noted on his chest CT * positive cardiac enzymes Objective Vital Signs and I&Os Vital Signs Date Time Temp Pulse Resp B/P B/P Pulse O2 O2 Flow FiO2 Mean Ox Delivery Rate 03/30 0915 96 Nasal 2.0L Cannula 03/30 0832 78 99 03/30 0800 96 BIPAP 30% 03/30 08 98.0 73 26 112/76 96 BIPAP 30% 03/30 0623 66 99 03/30 0348 67 97 03/30 0100 74 98 03/29 2331 96 BIPAP 30% 03/29 2219 90 97 03/29 2200 98.5 86 20 110/70 96 BIPAP 30% 03/29 1921 96 Nasal 2.0L Cannula 03/29 1600 95 Nasal 2.0L Cannula 03/29 1557 97.2 83 27 108/70 99 BIPAP 30% 03/29 1550 89 98 03/29 1330 110 95 03/29 1200 96 Nasal 3.0L Cannula 03/29 1154 98.2 92 22 90/60 99 Nasal 3.0L Cannula 03/29 1147 96 Nasal 3.0L Cannula Intake & Output 03/30 1600 03/30 0800 / 0000 / 1600 03/29 0800 05/ 0000 Intake Total 100 100 730 150 550 Output Total 700 200 350 305 250 Balance -600 -100 380 -155 300 Intake, IV 250 250 Intake, Oral 100 100 480 150 300 Number 1 Bowel Movements Output, Urine 700 200 350 305 250 Patient 112 lb Weight Weight Bed scale Measurement Method Physical Exam: General: WD/thin male in NAD; alert and oriented x 3 Neck: no JVD Heart: RRR w/o murmur Lungs: clear bilaterally Extremities: no edema Assessment/Plan Assessment/Plan * This patient has coronary calcifications and multiple postivie cardiac enzymes. He is without chest pain however. In considertation of his coronary artery disease this patient will need an eventual cardiac catheterization but we will hold off until he is more stable. Continue aspirin and begin Plavix. * This patient has noted profound weight loss with new and enlarging pulmonary nodules. Please obtain a pulmonary consult. * This patient reported problems with dropping items that brought him to the ER. Obtain a head CT to evaluate for stroke. Continue telemetry? Yes
[2018-03-30 16:00] VITALS: BP 100/60
--- NOTE | 2018-03-30 16:09 | CT SCAN REPORT ---
EXAMINATION: CT HEAD WITHOUT CONTRAST CLINICAL INFORMATION: Weakness of the upper extremities. COMPARISON: None TECHNIQUE: Contiguous axial imaging was performed from the skull base to vertex without intravenous administration of contrast. DLP: 618 mGy-cm FINDINGS: There is some streak artifact through the lower aspect of the imaged volume. There is no evidence of acute intracranial hemorrhage or territorial infarction. No abnormal mass effect or midline shift is seen. Vazquez to white matter differentiation is well preserved. No extra-axial fluid collections are identified. The ventricles, sulci, and extra-axial CSF spaces appear fairly normal in caliber and configuration. Attenuation within the brain appears fairly normal. No acute osseous abnormality. Minor mucosal thickening in the anterior left ethmoid air cells. The mastoid air cells and middle ear cavities are clear. No acute soft tissue abnormalities. The product development image demonstrates that the patient is edentulous. Mild cervical spondylosis at C5-C6. IMPRESSION: No acute intracranial pathology.
[2018-03-31] VITALS: BP 98/60
[2018-03-31 05:06] LABS: ABSOLUTE BASOPHIL COUNT 0 /CUMM (0.0-0.2); ABSOLUTE EOSINOPHIL COUNT 0 /CUMM (0.0-0.7); ABSOLUTE GRANULOCYTE CT 6.4 /CUMM (1.4-6.5); ABSOLUTE LYMPH COUNT 0.7 /CUMM (1.2-3.4); ABSOLUTE MONOCYTE COUNT 0.3 /CUMM (0.10-0.60); BASOPHIL % 0.1 % (0.0-2.0); EOSINOPHIL % 0.1 % (0-5); GRANULOCYTE % 85.6 % (42.2-75.2); HEMATOCRIT 37.2 % (42-52); MEAN CORPUSCULAR HGB 28.9 PG (27.0-31.0); MEAN CORPUSCULAR VOLUME 90.2 FL (80.0-94.0); MEAN PLATELET VOLUME 7.6 FL (7.4-10.4); PLATELET COUNT 212 /CUMM (130-400); RBC DISTRIBUTION WIDTH 14.7 % (11.5-14.5); RED BLOOD CELL CT 4.13 /CUMM (4.70-6.10); WHITE BLOOD CELL COUNT 7.5 /CUMM (4.8-10.8)
--- NOTE | 2018-03-31 07:24 | PN- Resident CRCU ---
See Addendum Subjective HPI/CRCU Issues: Acute on chronic hypoxic and hypercarbic respiratory failure from COPD exacerbation Type II [place]/elevated troponin Sinus tachycardia-resolved Hypotension-resolved 24 Hour Events: Patient was seen and examined this morning He is alert awake and oriented to time place and person No acute events overnight Patient was on BiPAP overnight Tolerating well Offers no complaints this morning Vitals afebrile, heart rate 66, respiratory rate 20, blood pressure 110/70, on BiPAP 6, 22, 24. Saturating at 99%. Adequate urine output Objective Vital Signs & I&O Last 8 Hrs of Vitals and I&O: Vital Signs Date Time Temp Pulse Resp B/P B/P Pulse O2 O2 Flow FiO2 Mean Ox Delivery Rate 03/31 1022 96 Nasal 2.0L Cannula 03/31 800 98.8 76 20 120/60 97 Nasal 2.0L Cannula 03/31 800 97 Nasal 2.0L Cannula 03/31 0617 69 99 Intake & Output 03/31 1600 Intake Total Output Total Balance Patient 50.802 kg Weight Intake & Output 03/31 1600 Intake Total Output Total Balance Patient 50.802 kg Weight Exam General Appearance: well developed/nourished, no apparent distress, alert, awake Other Physical Findings: HEENT Atraumatic, PERRLA, EOMI, Mucous Membr. moist/pink Neck Supple, No JVD Lymphatic Cervical nl Cardiovascular Regular Rate, Normal S1, Normal S2, No Murmurs Lungs Normal Air Movement, decreased breath sounds and b/l wheezes and crackles Abdomen Normal Bowel Sounds, Soft, No Tenderness Extremities No Clubbing, No Cyanosis, No Edema, Normal Pulses, No Tenderness/ Swelling Vascular Normal Pulses, Pulses Symmetrical Current Medications: Current Medications Sig/Alejandrina Start time Last Medication Dose Route Stop Time Status Admin Albuterol Sulfate 3 ML BID 03/28 2100 AC 03/31 INH 0924 Aspirin 81 MG DAILY 03/29 0900 AC 03/31 PO 0910 Atorvastatin Calcium 40 MG 1700 03/28 1700 AC 03/30 PO 1728 Azithromycin 500 MG DAILY 03/28 1633 AC 03/31 Sodium Chloride 250 ML IV 04/010 0914 Budesonide/ 2 PUF BID 03/28 2100 AC 03/31 Formoterol Fumarate INH 0911 Clopidogrel Bisulfate 75 MG DAILY 03/30 1115 AC 03/31 PO 0910 Doxepin HCl 25 MG AT BEDTIME 03/29 2100 AC 03/30 PO 2054 Enoxaparin Sodium 40 MG DAILY 03/29 0900 AC 03/31 SC 0914 Guaifenesin 600 MG Q12 03/30 1345 AC 03/31 PO 0910 Methylprednisolone 40 MG Q12 03/29 2100 DC 03/31 IV 0912 Prednisone 40 MG DAILY 04/01 0900 AC PO Tiotropium [place] 1 PUF DAILY 03/29 0900 AC 03/31 INH 0911 Trazodone HCl 50 MG QPM PRN 03/28 1900 AC PO Impression/Plan Impression/Problem List Impression: This is a 62-year-old man with past medical history significant for end-stage COPD, on home oxygen, on inhaler treatments, follows up with Dr. Lynn, anxiety, depression, hyperlipidemia, insomnia, ascending aortic aneurysm, chronic respiratory failure was brought in by ambulance for evaluation of worsening shortness of breath for 1 day. Vitals at the time of admission Afebrile, heart rate 133, respiratory rate 28, blood pressure 116/69, saturating at 72 on 2 L nasal cannula. pertinent labs WBC 9.1, hemoglobin 13 and hematocrit 42, platelets 184 Sodium 136, potassium 5.2, BUN 27, creatinine 0.7, platelets 192 Troponin 0.34 ProBNP 2810 Chest x-ray showed Hyperinflation/COPD. No acute intrathoracic disease. EKG showed sinus rhythm, sinus tachycardia, rate 130, normal [place] interval, right bundle branch block, no acute ST-T wave changes. V3 showed 0.[address] elevations CTA 1. No evidence of pulmonary embolism. 2. Extensive paraseptal and centrilobular emphysema is again seen with multifocal areas of reticular nodular opacities in the lungs, similar to prior study. There are 2 nodules, however which are changing, one being new in the right upper lobe and the other being an enlarging nodule by 2 mm in the right upper lobe compared to 12/04/2017. Given the relatively rapid time course of change, inflammatory etiology may be possible. However, given the extensive underlying obstructive lung disease, neoplastic etiology is not excluded and short interval follow-up assessment in 3 months is recommended. 3. Enlarged central pulmonary arteries, suspicious for pulmonary arterial hypertension. 4. Aneurysmal aorta, similar to prior exam. 5. Mild coronary artery calcifications. -------- 1. Acute hypoxic and hypercarbic respiratory failure from COPD exacerbation Patient presented with worsening shortness of breath for 1 day, associated with cough and sputum production. He was hypoxic up to 70% on 2 L nasal cannula requiring BiPAP. Initial ABG 7.29, 94, 44, PO2 66. * Patient was admitted to ICU for BiPAP requirement for the first time * Possible differentials for acute hypoxia and hypercarbic respiratory failure most possibly COPD exacerbation, end-stage COPD, bronchitis given his cough and sputum production. Of note patient has end-stage COPD, oxygen dependent. Never intubated. * Continue BiPAP prnn and night time * ABG prn * Monitor vitals every shift * IV methylprednisolone changed to prednisone 40 starting from tomorrow * IV azithromycin for 5 days-day 4 * TR nebs * Sputum culture * Monitor for fevers/leukocytosis * Dr smith on board Elevated troponin-type II [place] Patient was found to have elevated troponin 0.34 at the time of admission. He denied any chest pain, diaphoresis, sweating, palpitations. However he has shortness of breath from COPD exacerbation. Elevated troponin most likely from demand ischemia. EKG showed sinus rhythm, sinus tachycardia, rate 130, PVC, right bundle branch block. V3 showed 0.[address] elevations. * Elevated troponin most likely demand ischemia from acute hypoxic respiratory failure and COPD exacerbation * Serial troponins and EKG- trended * Continue aspirin 81 daily * Continue Lipitor 40 daily * started plavix 75 daily * Follow-up echocardiogram showed ejection fraction 70% with impaired left ventricular relaxation * Appreciate cardiology recommendations * This patient has coronary calcifications and multiple postivie cardiac enzymes. He is without chest pain however. In considertation of his coronary artery disease this patient will need an eventual cardiac catheterization. Sinus tachycardia Patient presented with tachycardia ranging in between 120-140. EKG showed sinus tachycardia rate 133. He received IV Lopressor 5 mg in the emergency room with follow-up heart rates varying in between 80-100. * Given sinus tachycardia, hypoxia, shortness of breath CT angiogram was done, ruled out pulmonary embolism. * Continuous telemetry monitoring * Monitor heart rates closely Hypotension- resolved provide Gentle hydration based on blood pressure. ruled out stroke patient reported problems with dropping items that brought him to the ER. Head CT - No acute intracranial pathology. Severe COPD/ oxygen dependent Patient has extensive history of smoking 2 packs per day for 45 years. He has been getting outpatient CAT scan chest every year for screening. He has severe emphysema, nodular opacities of both lower lungs. He has been following up Dr. Lynn milling planer operator as an outpatient for end-stage COPD. He uses oxygen continuously 2 L. He was never admitted to the hospital for COPD exacerbation. He was never intubated. * [facility] nebs Enlarging lUNG NODULES There are 2 nodules, however which are changing, one being new in the right upper lobe and the other being an enlarging nodule by 2 mm in the right upper lobe compared to 12/04/2017. However, given the extensive underlying obstructive lung disease, neoplastic etiology is not excluded and short interval follow-up assessment in 3 months is recommended. * Follow up CAT scan in 3 months * Follow-up with Dr hernandez milling planer operator as an outpatient Aneurysmal aorta CAT scan chest 12/2016 showed Borderline ascending aortic aneurysm with maximal AP diameter of 4.0 cm. CTA 03/28/2018 showed The ascending aorta is ectatic, measuring 3.7 cm at the level of the right main pulmonary artery. The descending limb of the aortic arch measures 4.1 cm and the descending aorta 2.8 cm. * No further intervention for now given aneurysmal aorta similar to prior exam. * Measures less than 5.5 cm. * Yearly follow up recommended. Hyperlipidemia-continue home medications Lipitor 40 daily Insomnia continue trazodone 50 at bedtime Depression continue doxepin at bedtime Protein calorie malnutrition Patient has unintentional weight loss almost 15 pounds for last few months. Patient met guidelines for severe malnutrition with BMI 15. * Supplementing PO diet with ensure 3 times a day * Will check serum prealbumin Patient is full code DVT prophylaxis alps and subcutaneous Lovenox Reg diet Pain pathway #1 Central line- none #2 Arterial line- none #3 Arredondo catheter- none #4 Rectal tube- none. #5 NG tube- none. #6 IV/peripheral line- present 03/28/18 #7 IV drips- None #8 Vent settings - BIPAP #9 pressors- none. Problem List: 1. COPD with exacerbation 2. Acute hypercapnic respiratory failure 3. Elevated troponin 4. Myocardial infarction type 2 Pain Ratin Tomorrow's Labs & Rationales: cbc icu bundle Plan DVT/Prophylaxis: mechanical, pharmacological
[2018-03-31 08:00] VITALS: BP 120/60
--- NOTE | 2018-03-31 08:06 | PN- Pulmonary ---
Subjective HPI/Critical Care Issues: Patient is awake alert feels improved he has no chest pain cough or sputum production. Tibial blood gases showed a compensated hypercapnic respiratory failure. he is back to baseline 2 L nasal oxygen. Objective Current Medications: Current Medications Sig/Alejandrina Start time Last Medication Dose Route Stop Time Status Admin Albuterol Sulfate 3 ML BID 03/28 2100 AC 03/30 INH 2118 Aspirin 81 MG DAILY 03/29 0900 AC 03/30 PO 0834 Atorvastatin Calcium 40 MG 1700 03/28 1700 AC 03/30 PO 1728 Azithromycin 500 MG DAILY 03/28 1633 AC 03/30 Sodium Chloride 250 ML IV 04/01 2300 0941 Budesonide/ 2 PUF BID 03/28 2100 AC 03/30 Formoterol Fumarate INH 205 Clopidogrel Bisulfate 75 MG DAILY 03/30 1115 AC 03/30 PO 1427 Doxepin HCl 25 MG AT BEDTIME 03/29 2100 AC 03/30 PO 205 Enoxaparin Sodium 40 MG DAILY 03/29 0900 AC 03/30 SC 0834 Guaifenesin 600 MG Q12 03/30 1345 AC 03/30 PO 205 Methylprednisolone 40 MG Q12 03/29 2100 AC 03/30 IV 205 Tiotropium [place] 1 PUF DAILY 03/29 0900 AC 03/30 INH 0834 Trazodone HCl 50 MG QPM PRN 03/28 1900 AC PO Vital Signs & I&O Last 24 Hrs of Vitals and I&O: Vital Signs Date Time Temp Pulse Resp B/P B/P Pulse O2 O2 Flow FiO2 Mean Ox Delivery Rate 03/31 617 69 99 03/31 0339 66 98 03/31 0046 66 96 03/31 0000 98 BIPAP 30% 03/31 0000 97.6 72 18 98/60 98 BIPAP 30% 03/30 2129 78 99 03/30 2122 98 Nasal 3.0L Cannula 03/30 1600 Nasal 3.0L Cannula 03/30 1600 98.4 96 22 100/60 98 Nasal 2.0L Cannula 03/30 0915 96 Nasal 2.0L Cannula 03/30 832 78 99 Intake & Output 03/31 1600 03/31 0800 03/31 0000 Intake Total 100 160 Output Total 400 900 Balance -300 -740 Intake, Oral 100 160 Output, Urine 400 900 Saturation 2 L 96% exam of his chest shows diminished breath sounds there are no wheezes or crackles cardiac exam shows a regular S1 and S2 without murmurs abdomen is soft nontender there's no lower extremity edema Impression/Plan Impression/Plan Impression/Plan: Before meals 2-year-old gentleman with severe COPD chronic hypercarbia is admitted with myocardial infarction and acute on chronic hypercapnic respiratory failure which is improved. CT scan findings will require outpatient evaluation. Recommendations: Continue nocturnal BiPAP and patient would likely benefit from BiPAP at home. DC IV steroids begin oral prednisone. Continue baseline bronchodilator regimen will arrange for outpatient further evaluation of pulmonary nodules post discharge
--- NOTE | 2018-03-31 13:44 | PN- Cardiology ---
Subjective Subjective: * Krystian feels much improved and denies chest discomfort. His breathing is not quite back to baseline. * New and enlarging pulmonary nodules noted on his chest CT. * cardiac enzymes Objective Vital Signs and I&Os Vital Signs Date Time Temp Pulse Resp B/P B/P Pulse O2 O2 Flow FiO2 Mean Ox Delivery Rate 03/31 1022 96 Nasal 2.0L Cannula 03/31 08 98.8 76 20 120/60 97 Nasal 2.0L Cannula 03/31 08 97 Nasal 2.0L Cannula 03/31 0617 69 99 03/31 0339 66 98 03/31 0046 66 96 / 0000 98 BIPAP 30% 03/31 0000 97.6 72 18 98/60 98 BIPAP 30% 03/30 2129 78 99 03/30 2122 98 Nasal 3.0L Cannula 03/30 1600 Nasal 3.0L Cannula 03/30 1600 98.4 96 22 100/60 98 Nasal 2.0L Cannula Intake & Output 03/31 1600 03/31 0800 / 0000 03/30 1600 03/30 0800 03/30 0000 Intake Total 582 458 4095 100 100 Output Total 400 900 700 200 Balance -300 -740 1020 -600 -100 Intake, IV 300 Intake, Oral 100 160 720 100 100 Number 1 Bowel Movements Output, Urine 400 900 700 200 Patient 112 lb Weight Physical Exam: General: WD/thin male in NAD; alert and oriented x 3 Neck: no JVD Heart: RRR w/o murmur Lungs: clear bilaterally Extremities: no edema Assessment/Plan Assessment/Plan * This patient has coronary calcifications and multiple postivie cardiac enzymes. The patient has remained pain free and his minimally elevated cardiac enzymes have trended down. Okay to transfer to telemetry. His breathing is still somewhat compromised. Continue aspirin, Plavix and a statin. We will proceed with a cardiac catheterization when the patient's breathing is improved and he can lie flat. * This patient has noted profound weight loss with new and enlarging pulmonary nodules. Dr. Swartz has recommended changing to Prednisone with outpatient workup. Complete course of IV antibiotics. Continue BIPAP. * No evidence of a CVA on the patient's head CT. Continue telemetry? Yes
[2018-03-31 16:00] VITALS: BP 118/78
[2018-03-31 21:41] VITALS: BP 132/58
[2018-04-01 07:02] VITALS: BP 120/70
--- NOTE | 2018-04-01 07:37 | PN- Housestaff ---
Laurent BISHOP,Taco 04/01/18 0737: Subjective Follow-up For: Acute on chronic hypoxic and hypercarbic respiratory failure from COPD exacerbation Type II GA/elevated troponin Sinus tachycardia/hypotension Tele-Events Since Last Visit: sinus rhythm, no events Subjective: patient is still having dyspnea and is on his baseline amount of oxygen, 2L was able to lay supine without significantly worsening dyspnea no chest pain or new complaints Review of Systems Constitutional: Reports: see HPI. Objective Last 24 Hrs of Vital Signs/I&O Vital Signs Date Time Temp Pulse Resp B/P B/P Pulse O2 O2 Flow FiO2 Mean Ox Delivery Rate 04/01 1042 96 Nasal 2.0L Cannula 04/01 08 Nasal 2.0L Cannula 04/01 0702 97.9 73 20 120/70 99 BIPAP 04/01 0037 75 98 04/01 0000 90 Nasal 2.0L Cannula 03/31 2246 102 100 03/31 2141 98.4 113 28 132/58 90 Nasal 2.0L Cannula 03/31 2030 94 Nasal 2.0L Cannula 03/31 1600 95 Nasal 2.0L Cannula 03/31 1600 99.6 79 20 118/78 95 Nasal 2.0L Cannula Intake & Output 04/01 1600 04/01 0800 05 0000 Intake Total 220 220 Output Total 225 Balance -5 220 Intake, Oral 220 220 Output, Urine 225 Physical Exam General Appearance: Alert, Oriented X3, Cooperative, Mild Distress, mildly tachypnea on 2L oxygen NC Cardiovascular: Regular Rate, Normal S1, Normal S2, No Murmurs Lungs: diminished breath sounds without audible wheezing Abdomen: Normal Bowel Sounds, Soft, No Tenderness, No Masses Extremities: No Clubbing, No Cyanosis, No Edema, Normal Pulses Current Medications: Current Medications Sig/Alejandrina Start time Last Medication Dose Route Stop Time Status Admin Albuterol Sulfate 3 ML BID 03/28 2100 AC 04/01 INH 1037 Aspirin 81 MG DAILY 03/29 0900 AC 04/01 PO 0825 Atorvastatin Calcium 40 MG 1700 03/28 1700 AC 03/31 PO 1715 Azithromycin 500 MG DAILY 03/28 1633 AC 04/01 Sodium Chloride 250 ML IV 04/01 2300 0824 Budesonide/ 2 PUF BID 03/28 2100 AC 04/01 Formoterol Fumarate INH 0824 Clopidogrel Bisulfate 75 MG DAILY 03/30 1115 AC 04/01 PO 0825 Doxepin HCl 25 MG AT BEDTIME 03/29 2100 AC 03/31 PO 2045 Enoxaparin Sodium 40 MG DAILY 03/29 900 AC 04/01 SC 0824 Guaifenesin 600 MG Q12 03/30 1345 AC 04/01 PO 0825 Methylprednisolone 40 MG Q12 03/29 2100 DC 03/31 IV 0912 Prednisone 40 MG DAILY 04/01 900 AC 04/01 PO 0825 Sodium Chloride 2 SPRAY BID PRN 03/31 2045 AC CHENTE Tiotropium [place] 1 PUF DAILY 03/29 900 AC 04/01 INH 0825 Trazodone HCl 50 MG QPM PRN 03/28 1900 AC PO Last 24 Hrs of Lab/José Antonio Results Last 24 Hrs of Labs/Mics: Laboratory Tests 04/01/18 06: Anion Gap 6, Estimated GFR > 60, Glucose 79, Calcium 8.7, Phosphorus 2.8, Magnesium 1.8, Total Bilirubin 0.5, AST 30, ALT 41, Albumin 3.1 L, CBC w Diff NO MAN DIFF REQ, RBC 4.00 L, MCV 90.4, MCH 29.0, MCHC 32.1 L, RDW 14.9 H, MPV 7.4, Gran % 65.8, Lymphocytes % 21.2, Monocytes % 11.7 H, Eosinophils % 1.1, Basophils % 0.2, Absolute Granulocytes 5.5, Absolute Lymphocytes 1.8, Absolute Monocytes 1.0 H, Absolute Eosinophils 0.1, Absolute Basophils 0 Assessment/Plan Assessment: 62 year old male with past medical history significant for end-stage COPD, on 2L home oxygen presented with acute on chronic hypoxic respiratory failure with hypercarbia requiring BIPAP and type II NSTEMI from demand ischemia of respiratory failure. Acute hypoxic and hypercarbic respiratory failure COPD exacerbation Worsening dyspnea with cough and sputum Initial ABG 7.29/94/66/44 Admitted to ICU for BiPAP Oxygen dependent COPD, chronic hypoxic respiratory failure on 2L NC @ home Continue nocturnal BiPAP Start prednisone taper Bibasilar opacities on chest CT Completeing five days of azithromycin today Outpatient pulmnology follow up for enlarging lung masses Afebrile, former smoker Outpatient pulmonology follow up for enlarging lung nodules and weight loss There are 2 nodules, however which are changing, one being new in the right upper lobe and the other being an enlarging nodule by 2 mm in the right upper lobe compared to 12/04/2017. However, given the extensive underlying obstructive lung disease, neoplastic etiology is not excluded and short interval follow-up assessment in 3 months is recommended. Type II NSTEMI Elevated troponin 0.34 at admission. Elevated troponin most likely from demand ischemia. EKG showed sinus tachycardia HR 130s right bundle branch block. Continue aspirin, plavix and statin therapy Echocardiogram showed ejection fraction 70% with impaired LV relaxation Follow up cardiology recommendations, coronary angiography inpt vs outpt Plan to start beta edith Borderline ascending aortic aneurysm on CTA 4.0cm maximal, needs annual re- evaluation Protein malnutrition: BMI 15.6 Low prealbumin Recent weight loss Nutrition consult Meal supplementation with Ensure Regular diet DVT ppx-lovenox Full code Problem List: 1. Myocardial infarction type 2 2. Elevated troponin 3. COPD with exacerbation 4. Acute hypercapnic respiratory failure Pain Ratin Pain Location: n/a Pain Goal: Pain 4 or less Pain Plan: prn Tomorrow's Labs & Rationales: abg as needed Karel Langford MD 04/01/18 1112: Attending MD Review Statement Attending Statement Attending MD Statement: examined this patient, discuss w/resident/PA/INCOME TAX ADVISOR, agreed w/resident/PA/INCOME TAX ADVISOR, reviewed EMR data (avail) Attending Assessment/Plan: 62M PMH end-stage COPD, HLD, ascending aortic aneurysm, chronic respiratory failure on 2L NC at home admitted initially to ICU with acute hypercarbic and hypoxic respiratory failure requiring BiPAP, complicated by Type 2 myocardial infarction without chest pain, with imaging showing coronary calcifications, now improved following several days of nebulizer treatments, Solumedrol, and nightly BiPAP. Patient is comfortable today. He is breathing well, cooperative, lucid, and has no complaints. Labs are improving. 1. COPD Exacerbation 2. Acute hypercapnic and hypoxic respiratory failure 3. Type 2 myocardial infarction 4. Multiple lung nodules 5. History of ascending aortic aneurysm Plan - Continue on telemetry - Continue PRN BiPAP - Continue Prednisone taper and Azithromycin - Continue ASA, Plavix, statin - Follow cardiology and pulmonary recommendations - Continue home medications - Continue nebulizer treatments - DVT PPx - Will speak with cardiology regarding timing of cardiac catheterization and plan for transfer 3. Type 2 myocardial infarction 4. Multiple lung nodules 5. History of ascending aortic aneurysm Plan - Continue on telemetry - Continue PRN BiPAP - Continue Prednisone taper and Azithromycin - Continue ASA, Plavix, statin - Follow cardiology and pulmonary recommendations - Continue home medications - Continue nebulizer treatments - DVT PPx - Will speak with cardiology regarding timing of cardiac catheterization and plan for transfer
[2018-04-01 08:07] LABS: ABSOLUTE BASOPHIL COUNT 0 /CUMM (0.0-0.2); ABSOLUTE EOSINOPHIL COUNT 0.1 /CUMM (0.0-0.7); ABSOLUTE GRANULOCYTE CT 5.5 /CUMM (1.4-6.5); ABSOLUTE LYMPH COUNT 1.8 /CUMM (1.2-3.4); BASOPHIL % 0.2 % (0.0-2.0); EOSINOPHIL % 1.1 % (0-5); GRANULOCYTE % 65.8 % (42.2-75.2); HEMATOCRIT 36.2 % (42-52); MEAN CORPUSCULAR HGB CONC 32.1 G/DL (33.0-37.0); MEAN CORPUSCULAR VOLUME 90.4 FL (80.0-94.0); MEAN PLATELET VOLUME 7.4 FL (7.4-10.4); PLATELET COUNT 218 /CUMM (130-400); RBC DISTRIBUTION WIDTH 14.9 % (11.5-14.5); WHITE BLOOD CELL COUNT 8.3 /CUMM (4.8-10.8)
--- NOTE | 2018-04-01 08:11 | PN- Pulmonary ---
Subjective HPI/Critical Care Issues: Patient shortness of breath is improved and he feels significantly better Objective Current Medications: Current Medications Sig/Alejandrina Start time Last Medication Dose Route Stop Time Status Admin Albuterol Sulfate 3 ML BID 03/28 2100 AC 03/31 INH 2020 Aspirin 81 MG DAILY 03/29 900 AC 03/31 PO 0910 Atorvastatin Calcium 40 MG 1700 03/28 1700 AC 03/31 PO 1715 Azithromycin 500 MG DAILY 03/28 1633 AC 03/31 Sodium Chloride 250 ML IV 04/010 0914 Budesonide/ 2 PUF BID 03/28 2100 AC 03/31 Formoterol Fumarate INH 204 Clopidogrel Bisulfate 75 MG DAILY 03/30 1115 AC 03/31 PO 0910 Doxepin HCl 25 MG AT BEDTIME 03/29 2100 AC 03/31 PO 204 Enoxaparin Sodium 40 MG DAILY 03/29 900 AC 03/31 SC 0914 Guaifenesin 600 MG Q12 03/30 1345 AC 03/31 PO 2045 Methylprednisolone 40 MG Q12 03/29 2100 DC 03/31 IV 0912 Prednisone 40 MG DAILY 04/01 900 AC PO Sodium Chloride 2 SPRAY BID PRN 03/31 204 AC CHENTE Tiotropium [place] 1 PUF DAILY 03/29 900 AC 03/31 INH 0911 Trazodone HCl 50 MG QPM PRN 03/28 1900 AC PO Vital Signs & I&O Last 24 Hrs of Vitals and I&O: Vital Signs Date Time Temp Pulse Resp B/P B/P Pulse O2 O2 Flow FiO2 Mean Ox Delivery Rate 04/01 07 97.9 73 20 120/70 99 BIPAP 04/01 0037 75 98 04/01 0000 90 Nasal 2.0L Cannula 03/31 2246 102 100 03/31 2141 98.4 113 28 132/58 90 Nasal 2.0L Cannula 03/31 2030 94 Nasal 2.0L Cannula 03/31 1600 95 Nasal 2.0L Cannula 03/31 1600 99.6 79 20 118/78 95 Nasal 2.0L Cannula 03/31 1022 96 Nasal 2.0L Cannula Intake & Output 04/01 1600 04/01 0800 05 0000 Intake Total 220 220 Output Total 225 Balance -5 220 Intake, Oral 220 220 Output, Urine 225 Oxygen saturation 2 L 99% exam of his chest shows diminished breath sounds there are no wheezes cardiac exam shows regular S1 and S2 without murmurs Impression/Plan Impression/Plan Impression/Plan: 62-year-old with severe COPD has improved shortness of breath and improved oxygenation. Recommendations: Continue nocturnal BiPAP and patient would likely benefit from BiPAP at home. DC IV steroids begin oral prednisone. Continue baseline bronchodilator regimen will arrange for outpatient further evaluation of pulmonary nodules post discharge begin slow prednisone taper. Remainder pulmonary evaluation to be completed as outpatient
[2018-04-01 13:46] VITALS: BP 122/66
--- NOTE | 2018-04-01 15:18 | PN- Cardiology ---
Subjective Subjective: * Patient remains short of breath with minimal exertion such as going to the bathroom but was able to lie flat last evening. No chest discomfort. Objective Vital Signs and I&Os Vital Signs Date Time Temp Pulse Resp B/P B/P Pulse O2 O2 Flow FiO2 Mean Ox Delivery Rate 04/01 1346 98.6 77 18 122/66 97 04/01 1042 96 Nasal 2.0L Cannula 04/01 0800 Nasal 2.0L Cannula 04/01 0702 97.9 73 20 120/70 99 BIPAP 04/01 0037 75 98 04/01 0000 90 Nasal 2.0L Cannula 03/31 2246 102 100 03/31 2141 98.4 113 28 132/58 90 Nasal 2.0L Cannula 03/31 2030 94 Nasal 2.0L Cannula 03/31 1600 95 Nasal 2.0L Cannula 03/31 1600 99.6 79 20 118/78 95 Nasal 2.0L Cannula Intake & Output 04/01 1600 04/01 0800 05/ 0000 03/31 1600 03/31 0800 03/31 0000 Intake Total 650 220 220 650 100 160 Output Total 600 225 400 900 Balance 50 -5 220 650 -300 -740 Intake, IV 250 250 Intake, Oral 400 220 220 400 100 160 Number 1 Bowel Movements Output, Urine 600 225 400 900 Patient 112 lb Weight Physical Exam: General: WD/thin male in NAD; alert and oriented x 3 Neck: no JVD Heart: RRR w/o murmur Lungs: clear bilaterally Extremities: no edema Assessment/Plan Assessment/Plan * This patient has coronary calcifications and multiple positive cardiac enzymes. The patient has remained pain free and his minimally elevated cardiac enzymes have trended down. His breathing is still somewhat compromised although clearly improved from admission. Continue aspirin, Plavix and a statin. We will plan on discharge tomorrow if his breathing is acceptable with a plan for outpatient cardiac catheterization early next week. * This patient has noted profound weight loss with new and enlarging pulmonary nodules. Dr. Swartz has recommended changing to Prednisone with outpatient workup. Complete course of IV antibiotics and prednisone taper as recommended by Dr. wSartz. Continue BIPAP. Continue telemetry? Yes
[2018-04-01 17:34] VITALS: BP 102/62
[2018-04-01 23:18] VITALS: BP 102/72
[2018-04-02 06:36] VITALS: BP 100/66
--- NOTE | 2018-04-02 07:15 | PN- Housestaff ---
See Addendum Taco Mancilla MD 04/02/18 0715: Subjective Follow-up For: Acute on chronic hypoxic and hypercarbic respiratory failure from COPD exacerbation Type II PR/elevated troponin Sinus tachycardia/hypotension Tele-Events Since Last Visit: sinus rhythm, no events Subjective: patient slept well on bipap overnight states his breathing is significantly improved this morning afebrile used his nasal strips to help him breath which he reported substantial improvement overnight Review of Systems Constitutional: Reports: see HPI. Objective Last 24 Hrs of Vital Signs/I&O Vital Signs Date Time Temp Pulse Resp B/P B/P Pulse O2 O2 Flow FiO2 Mean Ox Delivery Rate 04/02 0636 97.5 66 24 100/66 100 BIPAP 04/02 0231 83 98 04/02 0000 96 BIPAP 40% 04/01 2318 98.6 88 18 102/72 98 Nasal Cannula 04/01 2139 105 98 04/01 1741 95 Nasal 2.0L Cannula 04/01 1734 98.9 107 18 102/62 95 Nasal Cannula 04/01 1600 95 Nasal 2.0L Cannula 04/01 1346 98.6 77 18 122/66 97 04/01 1042 96 Nasal 2.0L Cannula Intake & Output 04/02 1600 04/02 0800 05/ 0000 Intake Total 200 400 Output Total 400 550 Balance -200 -150 Intake, Oral 200 400 Number 1 Bowel Movements Output, Urine 400 550 Physical Exam General Appearance: Alert, Oriented X3, Cooperative, No Acute Distress Cardiovascular: Regular Rate, Normal S1, Normal S2, No Murmurs Lungs: diminished air movement without wheezing Abdomen: Normal Bowel Sounds, Soft, No Tenderness, No Masses Extremities: No Clubbing, No Cyanosis, No Edema, Normal Pulses Current Medications: Current Medications Sig/Alejandrina Start time Last Medication Dose Route Stop Time Status Admin Albuterol Sulfate 3 ML BID 03/28 2100 AC 04/01 INH 1741 Aspirin 81 MG DAILY 03/29 0900 AC 04/02 PO 0809 Atorvastatin Calcium 40 MG 1700 03/28 1700 AC 04/01 PO 1805 Azithromycin 500 MG DAILY 03/28 1633 DC 04/01 Sodium Chloride 250 ML IV 04/01 2300 0824 Budesonide/ 2 PUF BID 03/28 2100 AC 04/02 Formoterol Fumarate INH 0810 Clopidogrel Bisulfate 75 MG DAILY 03/30 1115 AC 04/02 PO 0809 Doxepin HCl 25 MG AT BEDTIME 03/29 2100 AC 04/01 PO 2034 Enoxaparin Sodium 40 MG DAILY 03/29 09 AC 04/02 SC 0812 Guaifenesin 600 MG Q12 03/30 1345 AC 04/02 PO 0809 Prednisone 40 MG DAILY 04/01 0900 AC 04/02 PO 0809 Sodium Chloride 2 SPRAY BID PRN 03/31 2045 AC 04/01 CHENTE 1830 Tiotropium [place] 1 PUF DAILY 03/29 09 AC 04/02 INH 0809 Trazodone HCl 50 MG QPM PRN 03/28 1900 AC PO Last 24 Hrs of Lab/José Antonio Results Last 24 Hrs of Labs/Mics: Laboratory Tests 04/02/18 0615: Anion Gap 7, Estimated GFR > 60, BUN/Creatinine Ratio 28.3 H Assessment/Plan Assessment: 62 year old male with past medical history significant for end-stage COPD, on 2L home oxygen presented with acute on chronic hypoxic respiratory failure with hypercarbia requiring BIPAP and type II NSTEMI from demand ischemia of respiratory failure. Acute hypoxic and hypercarbic respiratory failure COPD exacerbation Worsening dyspnea with cough and sputum Initial ABG 7.29/94/66/44 Admitted to ICU for BiPAP Oxygen dependent COPD, chronic hypoxic respiratory failure on 2L NC @ home Continue nocturnal BiPAP Bibasilar opacities on chest CT Completed course of azithromycin Outpatient pulmnology follow up for enlarging lung masses Afebrile, former smoker Plan to discharge on prednisone taper Acute on chronic hypercarbic respiratory failure: pCO2 elevated into the 90s and improved to 70s on continuous BiPAP Now requiring noctural BiPAP Reportedly has had sleep study as an outpatient with diagnosis of SEVERIANO per pt Will require home BiPAP per hospital account manager Outpatient pulmonology follow up for enlarging lung nodules and weight loss There are 2 nodules, however which are changing, one being new in the right upper lobe and the other being an enlarging nodule by 2 mm in the right upper lobe compared to 12/04/2017. However, given the extensive underlying obstructive lung disease, neoplastic etiology is not excluded and short interval follow-up assessment in 3 months is recommended. Type II NSTEMI Elevated troponin 0.34 at admission. Elevated troponin most likely from demand ischemia. EKG showed sinus tachycardia HR 130s right bundle branch block. Continue aspirin, plavix and statin therapy Echocardiogram showed ejection fraction 70% with impaired LV relaxation Follow up cardiology (Dr. Faye) recommendations Plan to start beta edith Borderline ascending aortic aneurysm on CTA 4.0cm maximal, needs annual re- evaluation Plan for outpatient cardiac catheterization next week as respiratory failure improves Protein malnutrition: BMI 15.6 Low prealbumin Recent weight loss Nutrition consult Meal supplementation with Ensure Regular diet DVT ppx-lovenox Full code Problem List: 1. Myocardial infarction type 2 2. Elevated troponin 3. COPD with exacerbation 4. Acute hypercapnic respiratory failure Pain Ratin Pain Location: n/a Pain Goal: Pain 4 or less Pain Plan: prn Tomorrow's Labs & Rationales: none, planned for discharge Karel Langford MD 04/02/18 1048: Attending MD Review Statement Attending Statement Attending MD Statement: examined this patient, discuss w/resident/PA/FIXTURE MAKER, agreed w/resident/PA/FIXTURE MAKER, reviewed EMR data (avail) Attending Assessment/Plan: 62M PMH end-stage COPD, HLD, ascending aortic aneurysm, chronic respiratory failure on 2L NC at home admitted initially to ICU with acute hypercarbic and hypoxic respiratory failure requiring BiPAP, complicated by Type 2 myocardial infarction without chest pain, with imaging showing coronary calcifications, now improved following several days of nebulizer treatments, Solumedrol, and nightly BiPAP. Patient is comfortable today. He is breathing well, cooperative, lucid, and has no complaints. Labs are improving. 1. COPD Exacerbation 2. Acute hypercapnic and hypoxic respiratory failure 3. Type 2 myocardial infarction 4. Multiple lung nodules 5. History of ascending aortic aneurysm Plan - Stable for discharge - Will check ambulatory saturation for oxygen at home - Home BiPAP - Continue Prednisone taper and Azithromycin - Continue ASA, Plavix, statin - Outpatient cardiology follow up for cardiac catheterization - Outpatient pulmonary follow up for lung nodules and weight loss - Continue home medications
[2018-04-02] MEDS ORDERED: PREDNISONE10 M2 PO (07:26)
[2018-04-02] MEDS ORDERED: PLAVIX75 M1 PO (07:26)
--- NOTE | 2018-04-02 07:28 | Patient Discharge Instructions ---
Discharge Instructions General Discharge Information You were seen/treated for: COPD exacerbation Type II NSTEMI Special Instructions: You were treated for COPD exacerbation and respiratory failure and required BiPAP to help you breath. During your difficulty breathing your heart was stress and this should be evaluated by Dr. Faye with a cardiac catheterization as your breathing improves. You should also follow up with Dr. Lynn for enlarging/new nodules discovered on a CAT scan of your chest. Acute Coronary Syndrome Inclusion Criteria At DC or during hospital stay patient has or had the following: ACS DIAGNOSIS No Discharge Core Measures Meds if any: Prescribed or Continued at Discharge Meds if any: NOT Prescribed or Continued at Discharge Congestive Heart Failure Inclusion Criteria At DC or during hospital stay patient has or had the following: CHF DIAGNOSIS No Discharge Core Measures Meds if any: Prescribed or Continued at Discharge Meds if any: NOT Prescribed or Continued at Discharge Cerebrovascular accident Inclusion Criteria At DC or during hospital stay patient has or had the following: CVA/TIA Diagnosis No Discharge Core Measures Meds if any: Prescribed or Continued at Discharge Meds if any: NOT Prescribed or Continued at Discharge Venous thromboembolism Inclusion Criteria VTE Diagnosis No VTE Type NONE VTE Confirmed by (Test) NONE Discharge Core Measures - Per Current guidelines, there needs to be overlap - treatment for the first 5 days of Warfarin therapy. - If discharged on Warfarin prior to 5 days of - overlap therapy, the patient will need to be - assessed for post discharge needs including - *Post discharge parental anticoagulation - *Warfarin and/or parental anticoagulation education - *Follow up date to check INR post discharge At least 5 days overlap therapy as Inpatient No Meds if any: Prescribed or Continued at Discharge Note: Overlap Therapy is Warfarin and Anticoagulant Meds if any: NOT Prescribed or Continued at Discharge
--- NOTE | 2018-04-02 07:35 | PN- Pulmonary ---
Subjective HPI/Critical Care Issues: Patient feels well and reports discharge pending Objective Current Medications: Current Medications Sig/Alejandrina Start time Last Medication Dose Route Stop Time Status Admin Albuterol Sulfate 3 ML BID 03/28 2100 AC 04/01 INH 1741 Aspirin 81 MG DAILY 03/29 900 AC 04/01 PO 0825 Atorvastatin Calcium 40 MG 1700 03/28 1700 AC 04/01 PO 1805 Azithromycin 500 MG DAILY 03/28 1633 DC 04/01 Sodium Chloride 250 ML IV 04/01 2300 0824 Budesonide/ 2 PUF BID 03/28 2100 AC 04/01 Formoterol Fumarate INH 203 Clopidogrel Bisulfate 75 MG DAILY 03/30 1115 AC 04/01 PO 0825 Doxepin HCl 25 MG AT BEDTIME 03/29 2100 AC 04/01 PO 203 Enoxaparin Sodium 40 MG DAILY 03/29 900 AC 04/01 SC 0824 Guaifenesin 600 MG Q12 03/30 1345 AC 04/01 PO 2034 Prednisone 40 MG DAILY 04/01 900 AC 04/01 PO 0825 Sodium Chloride 2 SPRAY BID PRN 03/31 204 AC 04/01 CHENTE 1830 Tiotropium [place] 1 PUF DAILY 03/29 900 AC 04/01 INH 0825 Trazodone HCl 50 MG QPM PRN 03/28 1900 AC PO Vital Signs & I&O Last 24 Hrs of Vitals and I&O: Vital Signs Date Time Temp Pulse Resp B/P B/P Pulse O2 O2 Flow FiO2 Mean Ox Delivery Rate 04/02 0636 97.5 66 24 100/66 100 BIPAP 04/02 0231 83 98 04/02 0000 96 BIPAP 40% 04/01 2318 98.6 88 18 102/72 98 Nasal Cannula 04/01 2139 105 98 04/01 1741 95 Nasal 2.0L Cannula 04/01 1734 98.9 107 18 102/62 95 Nasal Cannula 04/01 1600 95 Nasal 2.0L Cannula 04/01 1346 98.6 77 18 122/66 97 04/01 1042 96 Nasal 2.0L Cannula 04/01 0800 Nasal 2.0L Cannula Intake & Output 04/02 0800 05 0000 04/01 1600 Intake Total 200 400 650 Output Total 400 550 600 Balance -200 -150 50 Intake, IV 250 Intake, Oral 200 400 400 Number 1 1 Bowel Movements Output, Urine 400 550 600 Oxygen saturation 2 L 95% exam for chest shows diminished breath sounds there are no wheezes cardiac exam shows regular S1 and S2 without murmurs Impression/Plan Impression/Plan Impression/Plan: 62-year-old admitted with exacerbation of COPD now improved stable for discharge. Patient follow-up for abnormal CAT scan Recommendations: Continue nocturnal BiPAP and patient would likely benefit from BiPAP at home. DC IV steroids begin oral prednisone. Continue baseline bronchodilator regimen will arrange for outpatient further evaluation of pulmonary nodules post discharge begin slow prednisone taper. Remainder pulmonary evaluation to be completed as outpatient please schedule patient for follow-up appointment after discharge today
--- NOTE | 2018-04-02 11:47 | Discharge Summary ---
Visit Information Visit Dates Admission Date: 03/28/18 Discharge Date: 04/03/18 Hospital Course Course Attending Physician: Karel Langford MD Primary Care Physician: David BISHOP,[facility] Course: 62 year old male with past medical history significant for chronic hypoxemic respiratory failure, oxygen dependent COPD, on two liters at home oxygen presented with complaints of acute onset dyspnea, acute on chronic hypoxic respiratory failure with hypercarbia requiring BIPAP and type II NSTEMI from increased demand in setting of acute respiratory failure. In addition to the patient's symptoms of dyspnea, he was reportedly confused from hypercarbic respiratory failure. His initial blood gas showed an extremely high pCO2 (7.29/ pCO2 94/pO2 66/44). The patient was admitted to the ICU and started on BiPAP immediately, which improved his hypercarbia. He likely has a chronic respiratory acidosis based on serum bicarbonate greater than fourty on serum chemistries. He was treated for COPD exacerbation with intravenous steroids, azithromycin, and nebulized albuterol and ipatropium. All his other respiratory medications were continued. He was afebrile and CT chest was negative for pulmonary embolism, babasilar opacities, and new and increasing pulmonary nodules in the right upper lobe. His symptomatic dyspnea and hypercarbic respiratory failure improved with BiPAP, steroids, and antibiotics. He also presented with an elevated troponin (0.34) without new ischemic EKG changes and trended down. Cardiology was consulted and believed he had type II NSTEMI from demand ischemia in the setting of respiratory failure, increased work of breathing, hypoxia, and sinus tachycardia (HR 130) and relative hypotension (BP 90/60). An echocardiogram showed normal LVEF with impaired relaxation and mild pulmonary hypertension. He was evaluated by Dr. Faye who recommended cardiac catheterization but this was deferred until outpatient because he was unable to lay flat given his severe respiratory distress. He should likely be started on a beta edith after discharge. His aspirin and statin were continued and plavix was initiated. He also had a borderline ascending aortic aneurysm on Chest CTA with 4.0 cm maximal diameter that will need re-evaluation. He was also evaluated by nutrition for significant weight loss with a BMI < 16, with new and increasing pulmonary nodules on CT, raising concern for malignancy. He was diagnosed with severe protein calorie malnutrition and meal supplementation with Ensure. After his respiratory status improved to baseline, he was discharged to home on a predisone taper and BiPAP at night. He was instructed to follow up with Dr. Lynn for severe COPD and follow up of pulmonary nodules with repeat CT in three months. He was also instructed to follow up with cardiology (Dr. Faye) for cardiac catheterization, repeat evaluation of a borderline ascending aortic aneurysm and to follow up with his primary care physician, Dr. Hernandez. Allergies: Coded Allergies: No Known Allergies (03/28/18) Significant Procedures: Chest CTA 03/28/18 FINDINGS: Pulmonary arteries: The bolus timing on this study was acceptable for visualization of the pulmonary arterial tree. There are no intraluminal pulmonary arterial filling defects present to suggest pulmonary embolism in the main pulmonary artery, right and left main pulmonary artery, lobar and segmental branches. Central pulmonary arteries are enlarged, measuring 3.7 cm on the right side and 3.0 cm on the left side, raising the suspicion of pulmonary arterial hypertension. Lungs: There is extensive centrilobular and paraseptal emphysema again seen throughout the lungs. Superimposed multifocal areas of reticular nodular opacities are seen, similar to the previous exam, consistent with areas of chronic atelectasis or scarring. Patchy areas of air trapping are also seen. The central airways are patent, diffusely thickened and mildly ectatic. There is an enlarging solid noncalcified pulmonary nodule in the right lung apex (series 2, image 109), measuring 6 mm in diameter as compared to 4 mm on 12/04/2017. There is a new 6 mm solid noncalcified pulmonary nodule anteromedially in the right upper lobe (series 2, image 254). Aorta and heart: The heart is normal in size. The ascending aorta is ectatic, measuring 3.7 cm at the level of the right main pulmonary artery. The descending limb of the aortic arch measures 4.1 cm and the descending aorta 2.8 cm. Mild atherosclerotic calcifications of the aorta and coronary arteries are seen. There is no pericardial effusion. Lymphatic structures: There is no lymphadenopathy. Upper abdomen: Limited evaluation of the upper abdominal viscera demonstrates no focal abnormality. Bones: Diffuse osteopenia with multilevel mild vertebral spurring. No suspicious bone findings. IMPRESSION: 1. No evidence of pulmonary embolism. 2. Extensive paraseptal and centrilobular emphysema is again seen with multifocal areas of reticular nodular opacities in the lungs, similar to prior study. There are 2 nodules, however which are changing, one being new in the right upper lobe and the other being an enlarging nodule by 2 mm in the right upper lobe compared to 12/04/2017. Given the relatively rapid time course of change, inflammatory etiology may be possible. However, given the extensive underlying obstructive lung disease, neoplastic etiology is not excluded and short interval follow-up assessment in 3 months is recommended. 3. Enlarged central pulmonary arteries, suspicious for pulmonary arterial hypertension. 4. Aneurysmal aorta, similar to prior exam. 5. Mild coronary artery calcifications. Echocardiogram 03/30/18 FINDINGS Left Ventricle Normal left ventricular size, wall thickness and systolic function with no obvious regional wall motion abnormalities. Diastolic filling pattern is consistent with impaired LV relaxation. The ejection fraction is visually estimated at 70%. Right Ventricle The right ventricle is normal in size and function. Right Atrium The right atrium is normal in size. Left Atrium The left atrium is normal in size. The interatrial septum is intact. Mitral Valve The mitral valve is normal in structure and function. There is trace mitral regurgitation. Aortic Valve Structurally normal aortic valve without significant sclerosis or stenosis. There is no aortic regurgitation. Tricuspid Valve The tricuspid valve is normal in structure and function. There is trace tricuspid regurgitation. Pulmonary artery systolic pressure is mildly elevated to 48mmHg. Pulmonic Valve Structurally normal pulmonic valve. There is no pulmonic regurgitation. Pericardium Normal pericardium without effusion. No pleural effusion. Great Vessels Normal aortic root dimension. The aortic arch and great vessels are well seen and are normal. CONCLUSIONS 1. Normal EF of 70% with impaired LV relaxation. 2. Trace mitral regurgitation. 3. Trace tricuspid regurgitation. 4. Mild pulmonary hypertension. Disposition Summary Disposition Principal Diagnosis: Acute on chronic hypercarbic respiratory failure COPD exacerbation Chronic hypoxemic respiratory failure Type II NSTEMI Severe protein calorie malnutrition Additional Diagnosis: COPD, oxygen dependent Chronic hypoxemic respiratory failure on 2 liters of oxygen at baseline Anxiety/Depression Dyslipidemia Discharge Disposition: home health services Discharge Instructions General Discharge Information Code Status: Full Code Patient's Diet: Heart healthy Patient's Activity: As tolerated Follow-Up Instructions/Appts: Please follow up with Dr. Faye next week for a cardiac catheterization. Please follow up with Dr. Lynn for COPD and new and increased size of pulmonary nodules. Please follow up with your primary care physician, Dr. Hernandez , after discharge. Medications at Discharge Discharge Medications: Continue taking these medications: Albuterol Sulfate (Proair Hfa) 90 MCG HFA.AER.AD 2 Puff Inhale through mouth EVERY 4-6 HOURS NEEDED as needed for COPD Comments: NOT GIVEN THIS ADMISSION Fluticasone/Vilanterol (Breo Ellipta 200-25 Mcg INH) 200 MCG-25 MCG/DOSE BLST.W.DEV 1 Inhalation Inhale through mouth DAILY Comments: NOT GIVEN THIS ADMISSION. HAD SYMBICORT 04/02/18 AT 8A.M Tiotropium [place] (Spiriva) 18 MCG CAP.W.DEV 1 Capsule Inhale through mouth DAILY Comments: Last Taken: 04/03/18 Time: 9:10 AM Atorvastatin Calcium (Lipitor) 10 MG TABLET 1 Tablet ORAL DAILY Comments: Last Taken: 04/02/18 Time: 9:00 PM Trazodone HCl (Trazodone HCl) 50 MG TABLET 1 Tablet ORAL Every night Comments: NOT GIVEN THIS ADMISSION Doxepin HCl (Doxepin HCl) 50 MG CAPSULE 1 Capsule ORAL Every night Comments: Last Taken: 04/02/18 Time: 9:00 PM Aspirin (Ecotrin*) 81 MG TABLET.DR 1 Tablet ORAL DAILY Comments: Last Taken: 04/03/18 Time: 8:40 AM Start taking the following new medications: Clopidogrel Bisulfate (Plavix) 75 MG TABLET 1 Tablet ORAL DAILY Qty = 30 No Refills Comments: Last Taken: 04/03/18 Time: 8:40 AM Prednisone (Prednisone) 10 MG TABLET 1 Tablet ORAL As Directed Qty = 32 No Refills Instructions: TAKE 4 TABS X 2 DAYS TAKE 3 TABS X 4 DAYS TAKE 2 TABS X 4 DAYS TAKE 1 TABS X 4 DAYS THEN STOP Comments: Last Taken: 04/03/18 Time: 8:40 AM Copies To: Leah BISHOP,Vernon Wadsworth; Yunier BISHOP PHD,Vernon Berry; David BISHOP,Shlomo Attending Review Statement Documenting Attending: Karel Langford MD
--- NOTE | 2018-04-02 17:29 | PN- Cardiology ---
Subjective Subjective: * Patient is doing much better with breathing back to baseline. No chest discomfort. Objective Vital Signs and I&Os Vital Signs Date Time Temp Pulse Resp B/P B/P Pulse O2 O2 Flow FiO2 Mean Ox Delivery Rate 04/02 0950 96 Nasal 2.0L Cannula 04/02 0800 93 Nasal 2.0L Cannula 04/02 0636 97.5 66 24 100/66 100 BIPAP 04/02 0231 83 98 04/02 0000 96 BIPAP 40% 04/01 2318 98.6 88 18 102/72 98 Nasal Cannula 04/01 2139 105 98 04/01 1741 95 Nasal 2.0L Cannula 04/01 1734 98.9 107 18 102/62 95 Nasal Cannula Intake & Output 04/02 1600 04/02 0804/02 0000 04/01 1600 04/01 0804/01 0000 Intake Total 200 400 650 220 220 Output Total 400 550 600 225 Balance -200 -150 50 -5 220 Intake, IV 250 Intake, Oral 200 400 400 220 220 Number 1 1 Bowel Movements Output, Urine 400 550 600 225 Physical Exam: General: WD/thin male in NAD; alert and oriented x 3 Neck: no JVD Heart: RRR w/o murmur Lungs: clear bilaterally Extremities: no edema Assessment/Plan Assessment/Plan * This patient has coronary calcifications and multiple positive cardiac enzymes. The patient has remained pain free and his minimally elevated cardiac enzymes have trended down. His breathing is improved to his baseline. Continue aspirin, Plavix and a statin. We will plan on discharge today. An outpatient cardiac catheterization is planned for early next week. * This patient has noted profound weight loss with new and enlarging pulmonary nodules. Dr. Swartz has recommended changing to Prednisone with outpatient workup. Complete course of antibiotics and prednisone taper as recommended by Dr. Swartz. Continue BIPAP. Continue telemetry? No
[2018-04-02 22:28] VITALS: BP 100/62
[2018-04-03 07:28] VITALS: BP 98/62
--- NOTE | 2018-04-03 07:52 | PN- Pulmonary ---
Subjective HPI/Critical Care Issues: Patient feels improved and is awaiting discharge Objective Current Medications: Current Medications Sig/Alejandrina Start time Last Medication Dose Route Stop Time Status Admin Albuterol Sulfate 3 ML BID 03/28 2100 AC 04/02 INH 0949 Aspirin 81 MG DAILY 03/29 09 AC 04/02 PO 0809 Atorvastatin Calcium 40 MG 1700 03/28 1700 AC 04/02 PO 2104 Budesonide/ 2 PUF BID 03/28 2100 AC 04/02 Formoterol Fumarate INH 210 Clopidogrel Bisulfate 75 MG DAILY 03/30 1115 AC 04/02 PO 0809 Doxepin HCl 25 MG AT BEDTIME 03/29 2100 AC 04/02 PO 2104 Enoxaparin Sodium 40 MG DAILY 03/29 900 AC 04/02 SC 0812 Guaifenesin 600 MG Q12 03/30 1345 AC 04/02 PO 2104 Prednisone 40 MG DAILY 04/01 900 AC 04/02 PO 0809 Sodium Chloride 2 SPRAY BID PRN 03/31 2045 AC 04/01 CHENTE 1830 Tiotropium [place] 1 PUF DAILY 03/29 09 AC 04/02 INH 0809 Trazodone HCl 50 MG QPM PRN 03/28 1900 AC PO Vital Signs & I&O Last 24 Hrs of Vitals and I&O: Vital Signs Date Time Temp Pulse Resp B/P B/P Pulse O2 O2 Flow FiO2 Mean Ox Delivery Rate 04/03 0728 97.2 80 18 98/62 100 Nasal 2.0L Cannula 04/03 06 100 Nasal 2.0L Cannula 04/03 0000 Nasal 2.0L Cannula 04/02 2228 97.7 100 20 100/62 96 Nasal 2.0L Cannula 04/02 2200 94 Nasal 2.0L Cannula 04/02 1600 Nasal 2.0L Cannula 04/02 0950 96 Nasal 2.0L Cannula 04/02 0800 93 Nasal 2.0L Cannula Intake & Output 04/03 0800 04/03 0000 04/02 1600 Intake Total 400 400 Output Total 300 Balance 400 100 Intake, Oral 400 400 Number 0 Bowel Movements Output, Urine 300 Ox and saturation 2 L 100% exam of his chest shows diminished breath sounds are no wheezes cardiac exam shows regular S1 and S2 without murmurs Impression/Plan Impression/Plan Impression/Plan: 62-year-old gentleman admitted with COPD exacerbation and respiratory failure has improved Recommendations: Continue nocturnal BiPAP post discharge if feasible. Continue steroid taper. Follow-up outpatient for abnormal CAT scan
--- NOTE | 2018-04-03 08:00 | PN- Housestaff ---
See Addendum Subjective Follow-up For: Acute on chronic hypoxic and hypercarbic respiratory failure from COPD exacerbation Type II NE/elevated troponin Tele-Events Since Last Visit: sinus rhythm, no events Subjective: patient had nocturnal oximetry on 2L overnight feeling improved, no overnight events Review of Systems Constitutional: Reports: see HPI. Objective Last 24 Hrs of Vital Signs/I&O Vital Signs Date Time Temp Pulse Resp B/P B/P Pulse O2 O2 Flow FiO2 Mean Ox Delivery Rate 04/03 0728 97.2 80 18 98/62 100 Nasal 2.0L Cannula 04/03 0600 100 Nasal 2.0L Cannula 04/03 0000 Nasal 2.0L Cannula 04/02 2228 97.7 100 20 100/62 96 Nasal 2.0L Cannula 04/02 2200 94 Nasal 2.0L Cannula 04/02 1600 Nasal 2.0L Cannula 04/02 0950 96 Nasal 2.0L Cannula Intake & Output 04/03 1600 04/03 0800 04/03 0000 Intake Total 400 400 Output Total 300 Balance 400 100 Intake, Oral 400 400 Number 0 Bowel Movements Output, Urine 300 Physical Exam General Appearance: Alert, Oriented X3, Cooperative, No Acute Distress Cardiovascular: Regular Rate, Normal S1, Normal S2, No Murmurs Lungs: diminished breath sounds Abdomen: Normal Bowel Sounds, Soft, No Tenderness, No Masses Extremities: No Clubbing, No Cyanosis, No Edema, Normal Pulses Current Medications: Current Medications Sig/Alejandrina Start time Last Medication Dose Route Stop Time Status Admin Albuterol Sulfate 3 ML BID 03/28 2100 AC 04/03 INH 0900 Aspirin 81 MG DAILY 03/29 900 AC 04/03 PO 0838 Atorvastatin Calcium 40 MG 1700 03/28 1700 AC 04/02 PO 210 Budesonide/ 2 PUF BID 03/28 2100 AC 04/03 Formoterol Fumarate INH 0839 Clopidogrel Bisulfate 75 MG DAILY 03/30 1115 AC 04/03 PO 0838 Doxepin HCl 25 MG AT BEDTIME 03/29 2100 AC 04/02 PO 210 Enoxaparin Sodium 40 MG DAILY 03/29 900 AC 04/03 SC 0840 Guaifenesin 600 MG Q12 03/30 1345 AC 04/03 PO 0838 Prednisone 40 MG DAILY 04/01 900 AC 04/03 PO 0839 Sodium Chloride 2 SPRAY BID PRN 03/31 2045 AC 04/01 CHENTE 1830 Tiotropium [place] 1 PUF DAILY 03/29 0900 AC 04/02 INH 0809 Trazodone HCl 50 MG QPM PRN 03/28 1900 AC PO Last 24 Hrs of Lab/José Antonio Results Last 24 Hrs of Labs/Mics: Laboratory Tests 04/03/18 0800: ABG O2 Sat Calc/Leia 98.0 H, O2 Concentration % 2 LPM, O2 Delivery Method NC Assessment/Plan Assessment: 62 year old male with past medical history significant for end-stage COPD, on 2L home oxygen presented with acute on chronic hypoxic respiratory failure with hypercarbia requiring BIPAP and type II NSTEMI from demand ischemia of respiratory failure. Acute hypoxic and hypercarbic respiratory failure COPD exacerbation Worsening dyspnea with cough and sputum Initial ABG 7.29/94/66/44 Admitted to ICU for BiPAP Oxygen dependent COPD, chronic hypoxic respiratory failure on 2L NC @ home Bibasilar opacities on chest CT Completed course of azithromycin Outpatient pulmnology follow up for enlarging lung masses Afebrile, former smoker Discharge on prednisone taper Acute on chronic hypercarbic respiratory failure: pCO2 elevated into the 90s and improved to 70s on continuous BiPAP Will require home BiPAP per instrument processing tech Overnight oximetry showed 2 minutes of hypoxemia on baseline oxygen 2L Patient has evidence of baseline CO2 retention and chronic respiratory acidosis with elevated bicarbonate on serum chemistries Patient is likely to have future COPD exacerbation from upper respiratory infections Availability and use of BiPAP at home is likely to prevent future hospitalizations for acute exacerbations of both acute hypoxemic and hypercarbic respiratory failure after discharge and has been recommended by the patient's instrument processing tech Outpatient pulmonology follow up for enlarging lung nodules and weight loss There are 2 nodules, however which are changing, one being new in the right upper lobe and the other being an enlarging nodule by 2 mm in the right upper lobe compared to 12/04/2017. However, given the extensive underlying obstructive lung disease, neoplastic etiology is not excluded and short interval follow-up assessment in 3 months is recommended. Type II NSTEMI Elevated troponin 0.34 at admission. Elevated troponin most likely from demand ischemia. EKG showed sinus tachycardia HR 130s right bundle branch block. Continue aspirin, plavix and statin therapy Echocardiogram showed ejection fraction 70% with impaired LV relaxation Follow up cardiology (Dr. Faye) recommendations Plan to start beta edith Borderline ascending aortic aneurysm on CTA 4.0cm maximal, needs annual re- evaluation Plan for outpatient cardiac catheterization next week as respiratory failure improves Protein malnutrition: BMI 15.6 Low prealbumin Recent weight loss Nutrition consult Meal supplementation with Ensure Regular diet DVT [id number] Full code Problem List: 1. COPD with exacerbation 2. Acute hypercapnic respiratory failure 3. Elevated troponin 4. Myocardial infarction type 2 Pain Ratin Pain Location: n/a Pain Goal: Pain 4 or less Pain Plan: prn Tomorrow's Labs & Rationales: none, discharge
[2018-04-03] MEDS ORDERED: ASPIRIN EC81 M1 PO (09:59)
--- NOTE | 2018-04-03 17:44 | PN- Cardiology ---
Subjective Subjective: * Breathing is back to baseline. No chest discomfort. * sinus rhythm Objective Vital Signs and I&Os Vital Signs Date Time Temp Pulse Resp B/P B/P Pulse O2 O2 Flow FiO2 Mean Ox Delivery Rate 04/03 0900 98 Nasal 2.0L Cannula 04/03 08 100 Nasal 2.0L Cannula 04/03 0728 97.2 80 18 98/62 100 Nasal 2.0L Cannula 04/03 0600 100 Nasal 2.0L Cannula 04/03 0000 Nasal 2.0L Cannula 04/02 2228 97.7 100 20 100/62 96 Nasal 2.0L Cannula 04/02 2200 94 Nasal 2.0L Cannula Intake & Output 04/03 1600 04/03 0800 04/03 0000 04/02 1600 04/02 0804/02 0000 Intake Total 400 400 200 400 Output Total 300 400 550 Balance 400 100 -200 -150 Intake, Oral 400 400 200 400 Number 0 1 Bowel Movements Output, Urine 300 400 550 Physical Exam: General: WD/thin male in NAD; alert and oriented x 3 Neck: no JVD Heart: RRR w/o murmur Lungs: clear bilaterally Extremities: no edema Assessment/Plan Assessment/Plan * This patient has coronary calcifications and multiple positive cardiac enzymes. The patient has remained pain free and his minimally elevated cardiac enzymes have trended down. His breathing is improved to his baseline. Continue aspirin, Plavix and a statin. We will plan on discharge today. An outpatient cardiac catheterization is planned for early next week. * This patient has noted profound weight loss with new and enlarging pulmonary nodules. Dr. Swartz has recommended changing to Prednisone with outpatient workup. Complete course of antibiotics and prednisone taper as recommended by Dr. Swartz. Continue BIPAP. Continue telemetry? No
== END 2018-04-03 10:40 | DRG 189 ==
LOC: DELPENDDIS → ERH 11:59 → CRI 13:49 → ERHI 13:49 → 1NO 13:49 → ENRESERV 17:06 → ENTRNSPT 17:35 → EDTRNSPTSTS 17:45 → CRI 17:47 → CMPTRNSPT 18:00 → CRI 03-31 11:41 → 1NO 03-31 21:16 → ENPENDDIS 04-02 11:41 → 1NO 04-03 10:40
PROVIDERS: Emergency Medicine; Hospitalist; Student in an Organized Health Care Education/Training Program
PROC: 5A09457 Assistance with Respiratory Ventilation, 24-96 Consecutive Hours, Continuous Positive Airway Pressure (ICD-10-PCS; principal; 2018-03-28)
DX: J96.21 Acute and chronic respiratory failure with hypoxia (principal); I21.A1 Myocardial infarction type 2; E43 Unspecified severe protein-calorie malnutrition; I95.9 Hypotension, unspecified; E87.2 Acidosis; I71.2 Thoracic aortic aneurysm, without rupture; I24.8 Other forms of acute ischemic heart disease; R64 Cachexia; J44.0 Chronic obstructive pulmonary disease with (acute) lower respiratory infection; Z68.1 Body mass index [BMI] 19.9 or less, adult; Z99.81 Dependence on supplemental oxygen; J96.22 Acute and chronic respiratory failure with hypercapnia; J20.9 Acute bronchitis, unspecified; Z87.891 Personal history of nicotine dependence; F41.9 Anxiety disorder, unspecified; F32.9 Major depressive disorder, single episode, unspecified; G47.00 Insomnia, unspecified; R00.0 Tachycardia, unspecified; R91.8 Other nonspecific abnormal finding of lung field
CPT/HCPCS: 1NSP; CCU; 36415; 36592; 71045; 82436; 87070; 87086; 93005; 93010; 93306; 96361; 96374; 99291; J0456; J1650; J2920; J2930; J3490; J7040